=== PATIENT | female | born 1970 | race Caucasian/White ===

== ENCOUNTER 2017-03-07 15:27 | Outpatient (CLI) | payer BC ==
--- NOTE | 2017-03-09 09:37 | Mammography Report ---
DIGITAL BILATERAL SCREENING MAMMOGRAM: 03/07/2017 CLINICAL HISTORY: A 47-year-old female in for routine screening mammogram. The patient has no family history of breast cancer. She has had no prior breast surgeries. COMPARISON: 11/30/2008, 07/15/2010, 12/31/2012, 02/04/2014, . TECHNIQUE: Craniocaudad and oblique lateral views of each breast were obtained with Hologic full fiel d digital mammography. Axillary exaggerated craniocaudad views of both breasts were obtained. FINDINGS: Heterogeneously dense breasts are noted bilaterally. No significant clusters of calcificat ion are seen. No significant masses are noted. No change is detected. IMPRESSION: THE BREASTS APPEAR RADIOGRAPHICALLY BENIGN. BIRADS CATEGORY 1-NEGATIVE. RECOMMENDATION: ANNUAL BILATERAL SCREENING MAMMOGRAPHY. STANDARD QUALIFYING STATEMENTS 1. This examination was reviewed with the aid of Computer-Aided Detection (CAD). 2. A negative or benign imaging report should not delay biopsy if clinically suspicious findings are present. Consider surgical consultation if warranted. More than 5% of cancers are not identified by i maging. 3. Dense breasts may obscure an underlying neoplasm. JOB #: [id number] EXT JOB #:[id number]
== END 2017-03-07 15:28 | disposition home or self-care (01) ==
LOC: DI.N 15:27
PROVIDERS: ATTEND Family Medicine
DX: Z12.31 Encounter for screening mammogram for malignant neoplasm of breast (principal)
CPT/HCPCS: 77067

== ENCOUNTER 2019-07-11 08:17 | Outpatient (CLI) | payer OTHER ==
--- NOTE | 2019-07-11 12:53 | Mammography Report ---
Reason: SCREENING MAMMO Procedure Date: 07/11/2019 Accession Number: [id number] / [id number] Procedure: PEDRO - Screening Mammo w/Shawn CPT Code: FULL RESULT: EXAM: Screening Mammo w/Shawn DATE: 07/11/2019 8:56 AM CLINICAL HISTORY: Routine screening TECHNIQUE: (B) - Bilateral CC and MLO views were obtained. COMPARISON: 03/07/2017, 07/21/2015, 02/04/2014, 12/31/2012, 07/15/2010 PARENCHYMAL PATTERN: (D) - The breasts demonstrate heterogeneously dense fibroglandular parenchyma bilaterally. FINDINGS: No significant interval change. There are no suspicious masses, calcifications, or areas of distortion. IMPRESSION: Negative examination. BI-RADS category 1. RECOMMENDATION: (ANNUAL) - Recommend routine annual screening mammography. BI-RADS CATEGORY: (1) - Negative. STANDARD QUALIFYING STATEMENTS: 1. This examination was not reviewed with the aid of Computer-Aided Detection (CAD). 2. A negative or benign imaging report should not preclude biopsy if clinically suspicious findings are present. 3. Dense breasts may obscure an underlying neoplasm. 4. This examination was reviewed with the aid of 3D breast imaging (tomosynthesis).
== END 2019-07-11 08:18 | disposition home or self-care (01) ==
LOC: DI 08:17
DX: Z12.31 Encounter for screening mammogram for malignant neoplasm of breast (principal)
CPT/HCPCS: 77063; 77067

== ENCOUNTER 2020-09-14 07:24 | Outpatient (CLI) | payer MEDICAID ==
[2020-09-14 12:16] LABS: BASOPHILS # (AUTO) 0.1 10^3/uL (0.0-0.1); BASOPHILS % (AUTO) 0.7 %; EOSINOPHILS # (AUTO) 0.1 10^3/uL (0.0-0.7); EOSINOPHILS % (AUTO) 1.8 %; HCT - HEMATOCRIT 38.1 % (37.0-47.0); HGB - HEMOGLOBIN 12.5 g/dL (12.0-16.0); LYMPHOCYTES # (AUTO) 2.1 10^3/uL (1.5-3.5); LYMPHOCYTES % (AUTO) 28.7 %; MEAN CORPUSCULAR HGB CONC 32.8 g/dL (32.0-36.0); MEAN CORPUSCULAR VOLUME 91.6 fL (81.0-99.0); MEAN PLATELET VOLUME 10.7 fL (7.9-10.8); MONOCYTES # (AUTO) 0.8 10^3/uL (0.0-1.0); MONOCYTES % (AUTO) 10.4 %; NEUTROPHILS # (AUTO) 4.3 10^3/uL (1.5-6.6); NEUTROPHILS % (AUTO) 57.9 %; PLT - PLATELET COUNT 329 10^3/uL (130-450); RED BLOOD COUNT 4.16 10^6/uL (4.20-5.40); RED CELL DISTRIBUTION WIDTH 13.5 % (12.0-15.0); WHITE BLOOD COUNT 7.4 x10^3/uL (4.8-10.8)
[2020-09-14 14:20] LABS: ALBUMIN 3.9 g/dL (3.2-5.5); ALBUMIN/GLOBULIN RATIO 1.2 (1.0-2.2); ALKALINE PHOSPHATASE 78 IU/L (42-121); ALT ALANINE AMINOTRANSFERASE 20 IU/L (10-60); AST ASPARTATE AMINOTRANSFERASE 21 IU/L (10-42); BILIRUBIN,TOTAL 0.6 mg/dL (0.2-1.0); BUN - BLOOD UREA NITROGEN 19 mg/dL (6-20); CARBON DIOXIDE - CO2 24 mmol/L (21-32); CHLORIDE 103 mmol/L (101-111); CHOL/HDL RATIO 3.7 (<4.4); CHOLESTEROL 257 mg/dL; CREATININE 0.7 mg/dL (0.4-1.0); GFR - MDRD 88 (>89); GLUCOSE 96 mg/dL (70-100); HDL CHOLESTEROL 70 mg/dL; LDL CHOLESTEROL,CALCULATED 162 mg/dL; LDL/HDL RATIO 2.3 (<4.4); POTASSIUM 4.1 mmol/L (3.5-5.0); SODIUM 136 mmol/L (135-145); TOTAL PROTEIN 7.2 g/dL (6.7-8.2); TRIGLYCERIDES 124 mg/dL; VLDL CHOLESTEROL 25 mg/dL
[2020-09-14 14:28] LABS: THYROID STIMULATING HORMONE 1.99 uIU/mL (0.34-5.60)
== END 2020-09-14 23:59 | disposition home or self-care (01) ==
LOC: LAB.WCP 07:24
PROVIDERS: ATTEND Physician Assistant Medical
DX: Z00.00 Encounter for general adult medical examination without abnormal findings (principal)
CPT/HCPCS: 36415; 80050; 80061; 83721

== ENCOUNTER 2020-12-07 08:00 | Outpatient (CLI) | payer MEDICAID ==
[2020-12-07 12:18] LABS: CHOL/HDL RATIO 3.1 (<4.4); CHOLESTEROL 197 mg/dL; HDL CHOLESTEROL 64 mg/dL; LDL CHOLESTEROL,CALCULATED 110 mg/dL; LDL/HDL RATIO 1.7 (<4.4); TRIGLYCERIDES 117 mg/dL; VLDL CHOLESTEROL 23 mg/dL
== END 2020-12-07 23:59 | disposition home or self-care (01) ==
LOC: LAB.WCP 08:00
PROVIDERS: ATTEND Physician Assistant Medical
DX: E78.5 Hyperlipidemia, unspecified (principal)
CPT/HCPCS: 36415; 80061; 83721

== ENCOUNTER 2021-03-07 13:54 | Outpatient (CLI) | payer BC, MEDICAID ==
[2021-03-07 17:51] LABS: BASOPHILS % (AUTO) 0.3 %; EOSINOPHILS % (AUTO) 0.1 %; HCT - HEMATOCRIT 37.1 % (37.0-47.0); HGB - HEMOGLOBIN 12.2 g/dL (12.0-16.0); LYMPHOCYTES % (AUTO) 8.7 %; MEAN CORPUSCULAR HEMOGLOBIN 30.3 pg (27.0-31.0); MEAN CORPUSCULAR HGB CONC 32.9 g/dL (32.0-36.0); MEAN CORPUSCULAR VOLUME 92.1 fL (81.0-99.0); MEAN PLATELET VOLUME 10.7 fL (7.9-10.8); MONOCYTES # (AUTO) 1.2 10^3/uL (0.0-1.0); MONOCYTES % (AUTO) 11.1 %; NEUTROPHILS # (AUTO) 8.7 10^3/uL (1.5-6.6); NEUTROPHILS % (AUTO) 79.3 %; PLT - PLATELET COUNT 265 10^3/uL (130-450); RED BLOOD COUNT 4.03 10^6/uL (4.20-5.40); RED CELL DISTRIBUTION WIDTH 13.2 % (12.0-15.0); WHITE BLOOD COUNT 10.9 x10^3/uL (4.8-10.8)
[2021-03-07 18:17] LABS: ALBUMIN 3.7 g/dL (3.2-5.5); ALBUMIN/GLOBULIN RATIO 1.1 (1.0-2.2); BILIRUBIN,TOTAL 0.8 mg/dL (0.2-1.0); CALCIUM 8.6 mg/dL (8.5-10.3); CREATININE 0.8 mg/dL (0.4-1.0); POTASSIUM 3.8 mmol/L (3.5-5.0)
[2021-03-07 18:32] LABS: THYROID STIMULATING HORMONE 0.61 uIU/mL (0.34-5.60)
== END 2021-03-07 23:59 | disposition home or self-care (01) ==
LOC: LAB.N 13:54
PROVIDERS: ATTEND Family Medicine
DX: R50.9 Fever, unspecified (principal)
CPT/HCPCS: 36415; 80050

== ENCOUNTER 2021-03-07 14:42 | Emergency (ER) | payer BC, MEDICAID ==
[2021-03-07 15:56] LABS: BILIRUBIN,URINE NEGATIVE (NEGATIVE); GLUCOSE, URINE (UA) NEGATIVE (NEGATIVE); KETONES,URINE (UA) 15 mg/dL (NEGATIVE); LEUKOCYTE ESTERASE, URINE NEGATIVE (NEGATIVE); NITRITE,URINE NEGATIVE (NEGATIVE); OCCULT BLOOD,URINE TRACE-INTA (NEGATIVE); PH,URINE 7.5 PH (5.0-7.5); PROTEIN,URINE 30 mg/dL (NEGATIVE); UROBILINOGEN,URINE 0.2 (NORMAL) E.U./dL (NORMAL)
[2021-03-07 16:00] LABS: CLARITY,URINE HAZY (CLEAR)
[2021-03-07 16:04] LABS: AMORPHOUS SEDIMENT,UR Rare /LPF; BACTERIA,URINE Many /HPF (None Seen); SQUAMOUS EPITHELIAL CELL,UR MANY Squamous (<= Few); WBC,URINE 0-3 /HPF (0-5)
--- NOTE | 2021-03-07 16:22 | ED Physician Documentation ---
History of Present Illness - Stated complaint Stated Complaint: FEVER - Chief complaint Chief Complaint: Fever - History obtained from History obtained from: Patient - History of Present Illness Timing: Today Pain level max: 0 Pain level now: 0 - Additonal information Additional information: Patient is a 51-year-old female with fevers for the past 2 days. Denies any other symptoms. She was seen at the walk-in clinic today and had a fever of 104. She was given Tylenol and the fever broke. She states she feels better now. Has had her Covid vaccination. No cough. No congestion. No abdominal pain. No back pain. No urinary symptoms. No nausea or vomiting. No diarrhea. Has not been around anyone that she knows of that is ill. Patient states that she had blood work earlier today. No recent travel. Review of Systems Ten Systems: 10 systems reviewed and negative Constitutional: reports: Fever, Chills Eyes: denies: Decreased vision Ears: denies: Ear pain Nose: denies: Rhinorrhea / runny nose, Congestion Throat: denies: Sore throat Cardiac: denies: Chest pain / pressure Respiratory: denies: Dyspnea, Cough, Wheezing GI: denies: Abdominal Pain, Nausea, Vomiting, Diarrhea : denies: Dysuria, Frequency, Hesitancy, Now EGA Skin: denies: Rash Musculoskeletal: denies: Neck pain, Back pain Neurologic: denies: Headache PD PAST MEDICAL HISTORY - Past Medical History Past Medical History: Yes Cardiovascular: None Respiratory: None Neuro: None, Headaches Endocrine/Autoimmune: None GI: None 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: 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, Other : None, Other HEENT: None Psych: None, Depression Musculoskeletal: None Derm: None - Past Surgical History Past Surgical History: No General: 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: 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, Tubal ligation - Present Medications Home Medications: Ambulatory Orders Medication Instructions Recorded Confirmed Sertraline HCl [Zoloft] 150 mg PO DAILY 07/18/20 07/18/20 Amox/Clav 875/125 [Augmentin] 1 each PO Q12H #7 tablet 07/21/20 - Allergies Allergies/Adverse Reactions: Allergies Allergy/AdvReac Type Severity Reaction Status Date / Time No Known Drug Allergies Allergy Verified 07/18/20 08:20 - Social History Does the pt smoke?: No Smoking Status: Never smoker Does the pt drink ETOH?: No Does the pt have substance abuse?: No - Immunizations Immunizations are current?: Yes PD ED PE NORMAL - Vitals Vital signs reviewed: Yes - General General: Alert and oriented X 3, No acute distress, Well developed/nourished - HEENT HEENT: PERRL, Ears normal, Moist mucous membranes, Other (Mild posterior oropharyngeal erythema without tonsillar exudates.) - Neck Neck: Supple, no meningeal sign - Cardiac Cardiac: RRR, Strong equal pulses - Respiratory Respiratory: No respiratory distress, Clear bilaterally - Abdomen Abdomen: Soft, Non tender, Non distended - Back Back: No CVA TTP, No spinal TTP - Derm Derm: Warm and dry, No rash - Extremities Extremities: No edema, No calf tenderness / cord - Neuro Neuro: Alert and oriented X 3 - Psych Psych: Normal mood, Normal affect Results - Vitals Vitals: Vital Signs - 24 hr 03/07/21 03/07/21 14:48 17:03 Temperature 37.5 C 36.8 C Heart Rate 102 H 86 Respiratory 16 20 Rate Blood Pressure 92/64 92/56 L O2 Saturation 96 98 Oxygen O2 Source Room air - Labs Labs: Laboratory Tests 03/07/21 03/07/21 15:48 15:48 Urine Color YELLOW Urine Clarity HAZY Urine pH 7.5 Ur Specific [place] 1.020 Urine Protein 30 H Urine Glucose (UA) NEGATIVE Urine Ketones 15 H Urine Occult Blood TRACE-INTA Urine Nitrite NEGATIVE Urine Bilirubin NEGATIVE Urine Urobilinogen 0.2 (NORMAL) Ur Leukocyte Esterase NEGATIVE Urine RBC 6-10 H Urine WBC 0-3 Ur Squamous Epith Cells MANY Squamous H Amorphous Sediment Rare Urine Bacteria Many H Ur Microscopic Review INDICATED Urine Culture Comments NOT INDICATED Nasal Adenovirus (PCR) NOT DETECTED Nasal B. parapertussis DNA (PCR) NOT DETECTED Nasal Coronavir 229E PCR NOT DETECTED Nasal Coronavir HKU1 PCR NOT DETECTED Nasal Coronavir NL63 PCR NOT DETECTED Nasal Coronavir OC43 PCR NOT DETECTED Nasal Enterovir/Rhinovir PCR NOT DETECTED Nasal Influenza B PCR NOT DETECTED Nasal Influenza A PCR NOT DETECTED Nasal Parainfluen 1 PCR NOT DETECTED Nasal Parainfluen 2 PCR NOT DETECTED Nasal Parainfluen 3 PCR NOT DETECTED Nasal Parainfluen 4 PCR NOT DETECTED Nasal RSV (PCR) NOT DETECTED Nasal B.pertussis DNA PCR NOT DETECTED Nasal C.pneumoniae (PCR) NOT DETECTED Sachin Human Metapneumo PCR NOT DETECTED Nasal M.pneumoniae (PCR) NOT DETECTED Nasal SARS-CoV-2 (PCR) NOT DETECTED PD MEDICAL DECISION MAKING - ED course Complexity details: reviewed results, re-evaluated patient, considered differential, d/w patient ED course: Patient with fever of unclear etiology. No fever here. Tolerating p.o. without difficulty. Abdomen is soft, nontender nondistended. No CVA tenderness. She had blood work done at the walk-in clinic today, this is not yet available. She will follow up with her doctor for this. Urinalysis does not appear infected. Respiratory PCR panel is negative. Lungs are clear to auscultation bilaterally. Likely viral syndrome, we will have her follow-up with her doctor for further care. If the fevers persist for longer than 5 days, will consider further work-up and blood cultures. Patient counseled regarding signs and symptoms for which I believe and urgent re-evaluation would be necessary. Tiff ent with good understanding of and agreement to plan and is comfortable going home at this time This document was made in part using voice recognition software. While efforts are made to proofread this document, sound alike and grammatical errors may occur. Departure - Departure Disposition: 01 Home, Self Care Clinical Impression: Fever Qualifiers: Fever type: unspecified Qualified Code(s): R50.9 - Fever, unspecified Condition: Good Instructions: ED Fever Unconf Cause Follow-Up: Preethi Bentley PA-C [Primary Care Provider] - Within 1 week Comments: Follow-up with your doctor for further care. Return if you worsen. The cause of your symptoms is unclear today. Your respiratory PCR is negative. Your urinalysis does not appear infected. Continue Motrin and Tylenol for fever. The results of your blood work from the walk-in clinic are not available yet today. Follow-up with your doctor for these results Discharge Date/Time: 03/07/21 17:06
[2021-03-07 16:54] LABS: B. PARAPERTUSSIS- RESP PCR PAN NOT DETECTED; B. PERTUSSIS- RESP PCR PANEL NOT DETECTED; C. PNEUMONIAE- RESP PCR PANEL NOT DETECTED; CORONAVIRUS 229E-RESP PCR NOT DETECTED; CORONAVIRUS HKU1-RESP PCR NOT DETECTED; CORONAVIRUS NL63-RESP PCR NOT DETECTED; CORONAVIRUS OC43-RESP PCR NOT DETECTED; HUMAN METAPNEUMOVIRUS NOT DETECTED; INFLUENZA A- RESP PCR PANEL NOT DETECTED; INFLUENZA B - RESP PCR PANEL NOT DETECTED; M. PNEUMONIAE- RESP PCR PANEL NOT DETECTED; PARAINFLUENZA VIRUS 1 NOT DETECTED; PARAINFLUENZA VIRUS 2 NOT DETECTED; PARAINFLUENZA VIRUS 3 NOT DETECTED; PARAINFLUENZA VIRUS 4 NOT DETECTED; RHINOVIRUS/ENTEROVIRUS NOT DETECTED; RSV- RESP PCR PANEL NOT DETECTED; SARS-CoV-2 -RESP PCR PANEL NOT DETECTED
[2021-03-07 17:04] VITALS: BP 92/56
== END 2021-03-07 17:06 | disposition home or self-care (01) ==
LOC: ED 14:42
DX: R50.9 Fever, unspecified (principal); Z20.822 Contact with and (suspected) exposure to COVID-19
CPT/HCPCS: 0202U; 36415; 80050; 81001; 99281; 99283; 81003; 87086

== ENCOUNTER 2021-03-09 07:13 | Inpatient (IN) | payer BC ==
[2021-03-09 08:36] LABS: BASOPHILS % (AUTO) 0.3 %; EOSINOPHILS % (AUTO) 0.2 %; HGB - HEMOGLOBIN 12.7 g/dL (12.0-16.0); LYMPHOCYTES # (AUTO) 0.6 10^3/uL (1.5-3.5); LYMPHOCYTES % (AUTO) 4.7 %; MEAN CORPUSCULAR HGB CONC 34.3 g/dL (32.0-36.0); MEAN CORPUSCULAR VOLUME 90.2 fL (81.0-99.0); MEAN PLATELET VOLUME 10.4 fL (7.9-10.8); MONOCYTES % (AUTO) 8.5 %; NEUTROPHILS # (AUTO) 10.3 10^3/uL (1.5-6.6); NEUTROPHILS % (AUTO) 85.8 %; PLT - PLATELET COUNT 269 10^3/uL (130-450); RED CELL DISTRIBUTION WIDTH 13.3 % (12.0-15.0)
[2021-03-09] MEDS ORDERED: ACETAMINOPHEN 325 MG TABLET PO STA (08:41)
[2021-03-09] MEDS ORDERED: SODIUM CHLORIDE 0.9% 1,000 ML IV STA ×2 (08:41→10:09)
[2021-03-09] MEDS ORDERED: IBUPROFEN 600 MG TABLET PO STA (08:42)
[2021-03-09 08:51] LABS: ALBUMIN 3.2 g/dL (3.2-5.5); ALBUMIN/GLOBULIN RATIO 0.8 (1.0-2.2); BILIRUBIN,TOTAL 0.6 mg/dL (0.2-1.0); CALCIUM 8.7 mg/dL (8.5-10.3); CREATININE 0.9 mg/dL (0.4-1.0); POTASSIUM 3.9 mmol/L (3.5-5.0); TOTAL PROTEIN 7.2 g/dL (6.7-8.2)
--- NOTE | 2021-03-09 08:59 | ED Physician Documentation ---
History of Present Illness - Stated complaint Stated Complaint: CHILLS/FEVER - Chief complaint Chief Complaint: Fever - History obtained from History obtained from: Patient - Additonal information Additional information: Patient comes emergency department chief complaint of fever for 5 days. She states she really has not had any other symptoms except just feeling fatigued. She states that she was finally seen 3 days after the fever started and was worked up in the urgent care clinic with labs. Patient states that her fever initially was around 101, but was as high as 104 on the day she was evaluated. Patient was sent home, but reviewed her labs at home and was concerned because she saw "a lot of abnormalities". She states she googled some of the results and was concerned that something more serious may be wrong. The patient has continued to have fevers. She will occasionally take an antipyretic, but states that 6 hours later, her fever is back. Her watch has been alarming that her heart rate is up and that is concerned her as well. Patient denies any nausea vomiting. No back pain or dysuria. No cough or shortness of breath. No sick contacts. No other complaints at this time. Patient does have anxiety and states she thinks her elevated respiratory rate is from anxiety and not taking her Zoloft. Review of Systems Ten Systems: 10 systems reviewed and negative Constitutional: reports: Fever, Chills, Fatigue Eyes: reports: Reviewed and negative Ears: reports: Reviewed and negative Nose: reports: Reviewed and negative Throat: reports: Reviewed and negative Cardiac: reports: Reviewed and negative Respiratory: reports: Reviewed and negative GI: reports: Reviewed and negative : reports: Reviewed and negative Skin: reports: Reviewed and negative Musculoskeletal: reports: Reviewed and negative Neurologic: reports: Reviewed and negative Psychiatric: reports: Anxiety Endocrine: reports: Reviewed and negative Immunocompromised: reports: Reviewed and negative PD PAST MEDICAL HISTORY - Past Medical History Past Medical History: Yes Cardiovascular: High cholesterol Respiratory: None Neuro: Headaches Endocrine/Autoimmune: None GI: None 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, Other : None HEENT: None Psych: Depression, Anxiety Musculoskeletal: None Derm: None - Past Surgical History Past Surgical History: No General: Appendectomy, 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 NEEDLE: section, Tubal ligation - Present Medications Home Medications: Ambulatory Orders Medication Instructions Recorded Confirmed Sertraline HCl [Zoloft] 150 mg PO DAILY 07/18/20 03/09/21 - Allergies Allergies/Adverse Reactions: Allergies Allergy/AdvReac Type Severity Reaction Status Date / Time amoxicillin AdvReac Intermediate Nausea Verified 03/09/21 11:34 clavulanic acid AdvReac Hallucinati Verified 03/09/21 20:17 [From Augmentin] ons - Social History Does the pt smoke?: No Smoking Status: Never smoker Does the pt drink ETOH?: Yes ETOH Use: Wine Does the pt have substance abuse?: No - Immunizations Immunizations are current?: Yes PD ED PE NORMAL - Vitals Vital signs reviewed: Yes - General General: Alert and oriented X 3, Well developed/nourished, Other (Patient appears mildly anxious otherwise No distress.) - HEENT HEENT: Atraumatic, PERRL, EOMI, Moist mucous membranes - Neck Neck: Supple, no meningeal sign - Cardiac Cardiac: RRR, No murmur - Respiratory Respiratory: No respiratory distress, Clear bilaterally, Other (Patient is somewhat tachypneic but appears more anxious than anything.) - Abdomen Abdomen: Soft, Non tender, Non distended - Back Back: No CVA TTP - Derm Derm: Normal color, Warm and dry, No rash - Extremities Extremities: No deformity, No edema, No calf tenderness / cord - Neuro Neuro: Alert and oriented X 3, community health coordinator 2-12 intact, No motor deficit, No sensory deficit, Normal speech - Psych Psych: Normal mood, Normal affect Results - Vitals Vitals: Vital Signs - 24 hr 03/09/21 03/09/21 03/09/21 07:20 09:22 09:29 Temperature 102.9 C H 37.9 C Heart Rate 117 H 110 H 109 H Respiratory 22 28 H 31 H Rate Blood Pressure 104/61 116/49 L 116/49 L O2 Saturation 98 100 100 03/09/21 10:35 Temperature 37.3 C Heart Rate 100 Respiratory 32 H Rate Blood Pressure 106/64 O2 Saturation 98 Oxygen O2 Source Room air - Labs Labs: Laboratory Tests 03/09/21 03/09/21 03/09/21 08:20 08:20 08:20 WBC 12.0 H RBC 4.10 L Hgb 12.7 Hct 37.0 MCV 90.2 MCH 31.0 MCHC 34.3 RDW 13.3 Plt Count 269 MPV 10.4 Neut # (Auto) 10.3 H Lymph # (Auto) 0.6 L Rich # (Auto) 1.0 Eos # (Auto) 0.0 Baso # (Auto) 0.0 Absolute Nucleated RBC 0.00 Nucleated RBC % 0.0 Sodium 133 L Potassium 3.9 Chloride 101 Carbon Dioxide 23 Anion Gap 9.0 BUN 10 Creatinine 0.9 Estimated GFR (MDRD) 65 L Glucose 143 H Lactic Acid 3.0 H* Calcium 8.7 Total Bilirubin 0.6 AST 100 H ALT 111 H Alkaline Phosphatase 218 H Total Protein 7.2 Albumin 3.2 Globulin 4.0 Albumin/Globulin Ratio 0.8 L Urine Color Urine Clarity Urine pH Ur Specific [place] Urine Protein Urine Glucose (UA) Urine Ketones Urine Occult Blood Urine Nitrite Urine Bilirubin Urine Urobilinogen Ur Leukocyte Esterase Urine RBC Urine WBC Ur Squamous Epith Cells Urine Bacteria Urine Culture Comments Nasal Adenovirus (PCR) Nasal B. parapertussis DNA (PCR) Nasal Coronavir 229E PCR Nasal Coronavir HKU1 PCR Nasal Coronavir NL63 PCR Nasal Coronavir OC43 PCR Nasal Enterovir/Rhinovir PCR Nasal Influenza B PCR Nasal Influenza A PCR Nasal Parainfluen 1 PCR Nasal Parainfluen 2 PCR Nasal Parainfluen 3 PCR Nasal Parainfluen 4 PCR Nasal RSV (PCR) Nasal B.pertussis DNA PCR Nasal C.pneumoniae (PCR) Sachin Human Metapneumo PCR Nasal M.pneumoniae (PCR) Nasal SARS-CoV-2 (PCR) 03/09/21 03/09/21 08:48 09:25 WBC RBC Hgb Hct MCV MCH MCHC RDW Plt Count MPV Neut # (Auto) Lymph # (Auto) Rich # (Auto) Eos # (Auto) Baso # (Auto) Absolute Nucleated RBC Nucleated RBC % Sodium Potassium Chloride Carbon Dioxide Anion Gap BUN Creatinine Estimated GFR (MDRD) Glucose Lactic Acid Calcium Total Bilirubin AST ALT Alkaline Phosphatase Total Protein Albumin Globulin Albumin/Globulin Ratio Urine Color DARK YELLOW Urine Clarity SL. CLOUDY Urine pH 7.5 Ur Specific [place] 1.020 Urine Protein 100 H Urine Glucose (UA) NEGATIVE Urine Ketones TRACE Urine Occult Blood LARGE H Urine Nitrite NEGATIVE Urine Bilirubin NEGATIVE Urine Urobilinogen 0.2 (NORMAL) Ur Leukocyte Esterase NEGATIVE Urine RBC > Urine WBC 0-3 Ur Squamous Epith Cells MOD Squamous H Urine Bacteria Rare Urine Culture Comments NOT INDICATED Nasal Adenovirus (PCR) NOT DETECTED Nasal B. parapertussis DNA (PCR) NOT DETECTED Nasal Coronavir 229E PCR NOT DETECTED Nasal Coronavir HKU1 PCR NOT DETECTED Nasal Coronavir NL63 PCR NOT DETECTED Nasal Coronavir OC43 PCR NOT DETECTED Nasal Enterovir/Rhinovir PCR NOT DETECTED Nasal Influenza B PCR NOT DETECTED Nasal Influenza A PCR NOT DETECTED Nasal Parainfluen 1 PCR NOT DETECTED Nasal Parainfluen 2 PCR NOT DETECTED Nasal Parainfluen 3 PCR NOT DETECTED Nasal Parainfluen 4 PCR NOT DETECTED Nasal RSV (PCR) NOT DETECTED Nasal B.pertussis DNA PCR NOT DETECTED Nasal C.pneumoniae (PCR) NOT DETECTED Sachin Human Metapneumo PCR NOT DETECTED Nasal M.pneumoniae (PCR) NOT DETECTED Nasal SARS-CoV-2 (PCR) NOT DETECTED - Rads (name of study) CXR Radiology: Final report received, EMP read indepedently, See rad report (RLL infiltrate) PD MEDICAL DECISION MAKING - ED course Complexity details: reviewed old records, reviewed results, re-evaluated patient , considered differential, d/w patient ED course: The patient was worked up with labs, chest x-ray, and urinalysis. She was given IV fluids, Tylenol, and ibuprofen, with marked improvement in her symptoms, as well as her heart rate, which was normal on re-evaluation. UA was negative. Labs showed mild LFT elevations and leukocytosis, prompting US of gall bladder. This showed a stone, but no inflammation or CBD enlargement. CXR showed a RLL infiltrate. Respiratory PCR negative. Lactate level elevated at 3.0. Pt was given a total of 3 L of NS in the ED. She was also treated with IV Rocephin and Zithromax. I discussed the case with Dr. Burks, the on-call hospitalist, and he agreed to admit the pt for sepsis and pneumonia. Departure - Departure Disposition: 66 [facility] DC/Xfer Clinical Impression: Pneumonia Qualifiers: Pneumonia type: due to unspecified organism Laterality: right Lung location: lower lobe of lung Qualified Code(s): J18.9 - Pneumonia, unspecified organism Sepsis Qualifiers: Sepsis type: sepsis due to unspecified organism Sepsis acute organ dysfunction status: without acute organ dysfunction Qualified Code(s): A41.9 - Sepsis, unspecified organism Condition: Serious Discharge Date/Time: 03/09/21 12:27
--- NOTE | 2021-03-09 09:18 | XRAY Report ---
PROCEDURE: Chest 1 View X-Ray INDICATIONS: fever TECHNIQUE: One view of the chest was acquired. COMPARISON: CT abdomen/pelvis 07/18/2020 but no recent plain films. FINDINGS: Surgical changes and devices: None. Lungs and pleura: No pleural effusions or pneumothorax. Lungs are clear on the left but shows moder ate to dense pneumonia at the right lower lung.. Mediastinum: Mediastinal contours appear normal. Heart size is normal. Bones and chest wall: No suspicious bony lesions. Overlying soft tissues appear unremarkable. IMPRESSION: Moderate to dense pneumonia right lower lung. No effusion seen. Clear left lung. Reviewed by: Navjot Holt MD on 03/09/2021 9:17 AM PDT Approved by: Navjot Holt MD on 03/09/2021 9:17 AM PDT Station ID: [id number]
[2021-03-09 09:37] LABS: BILIRUBIN,URINE NEGATIVE (NEGATIVE); GLUCOSE, URINE (UA) NEGATIVE (NEGATIVE); KETONES,URINE (UA) TRACE mg/dL (NEGATIVE); LEUKOCYTE ESTERASE, URINE NEGATIVE (NEGATIVE); NITRITE,URINE NEGATIVE (NEGATIVE); OCCULT BLOOD,URINE LARGE (NEGATIVE); PH,URINE 7.5 PH (5.0-7.5); PROTEIN,URINE 100 mg/dL (NEGATIVE); UROBILINOGEN,URINE 0.2 (NORMAL) E.U./dL (NORMAL)
[2021-03-09 09:56] LABS: CLARITY,URINE SL. CLOUDY (CLEAR)
[2021-03-09 09:58] LABS: BACTERIA,URINE Rare /HPF (None Seen); SQUAMOUS EPITHELIAL CELL,UR MOD Squamous (<= Few); WBC,URINE 0-3 /HPF (0-5)
[2021-03-09 10:21] LABS: B. PARAPERTUSSIS- RESP PCR PAN NOT DETECTED; B. PERTUSSIS- RESP PCR PANEL NOT DETECTED; C. PNEUMONIAE- RESP PCR PANEL NOT DETECTED; CORONAVIRUS 229E-RESP PCR NOT DETECTED; CORONAVIRUS HKU1-RESP PCR NOT DETECTED; CORONAVIRUS NL63-RESP PCR NOT DETECTED; CORONAVIRUS OC43-RESP PCR NOT DETECTED; HUMAN METAPNEUMOVIRUS NOT DETECTED; INFLUENZA A- RESP PCR PANEL NOT DETECTED; INFLUENZA B - RESP PCR PANEL NOT DETECTED; M. PNEUMONIAE- RESP PCR PANEL NOT DETECTED; PARAINFLUENZA VIRUS 1 NOT DETECTED; PARAINFLUENZA VIRUS 2 NOT DETECTED; PARAINFLUENZA VIRUS 3 NOT DETECTED; PARAINFLUENZA VIRUS 4 NOT DETECTED; RHINOVIRUS/ENTEROVIRUS NOT DETECTED; RSV- RESP PCR PANEL NOT DETECTED; SARS-CoV-2 -RESP PCR PANEL NOT DETECTED
[2021-03-09] MEDS ORDERED: AZITHROMYCIN INJ 500 MG in SODIUM CHLORIDE 0.9% 250 ML IV STA (11:15)
[2021-03-09] MEDS ORDERED: cefTRIAXone 2 GM in SODIUM CHLORIDE 0.9% MINIBAG 100 ML IV STA (11:15)
--- NOTE | 2021-03-09 11:21 | Ultrasound Report ---
PROCEDURE: Abdomen Limited INDICATIONS: elev LFTs, fever TECHNIQUE: Real-time scanning was performed of the abdominal and retroperitoneal organs, with image documentatio n. COMPARISON: None. FINDINGS: Liver: Liver is mildly enlarged measuring 18.7 cm with appearance of steatosis. Gallbladder: Gallbladder demonstrates a prominent focus of increased echogenicity, measuring 1.5 cm. Wall thickness is within normal limits measuring 1.9 mm. Biliary ducts: Intrahepatic bile ducts are non-dilated. Extrahepatic bile duct caliber measures 3.2 mm. Normal is 6-7 mm or less in diameter, or 10 mm or less post-cholecystectomy. Pancreas: Visualized portions of the pancreas are sonographically normal. Kidneys: Kidneys are normal in size and echotexture. Right kidney measures 11.5 cm long. No hydron ephrosis or nephrolithiasis. No solid masses. IMPRESSION: Cholelithiasis without imaging evidence of cholecystitis. Hepatomegaly with steatosis. Reviewed by: Chanda Sandra MD on 03/09/2021 11:20 AM PDT Approved by: Chanda Sandra MD on 03/09/2021 11:20 AM PDT Station ID: [id number]
[2021-03-09] MEDS ORDERED: ZOLPIDEM 5 MG TABLET PO PRN (11:25)
[2021-03-09] MEDS ORDERED: ONDANSETRON ODT 4 MG TABLET TL PRN (11:25)
[2021-03-09] MEDS ORDERED: SODIUM CHLORIDE 0.9% 1,000 ML IV SCH (12:00)
--- NOTE | 2021-03-09 12:59 | PHARMACY PROGRESS NOTE ---
- Best Possible Medication History Admit Date and Time: 03/09/21 1125 Processed by: Nursing Medication History completed: Yes As the person ultimately responsible for medication therapy, providers are able to order a medication from an existing home medication list in [facility] via the "Reconcile Routine" prior to Confirmation of that medication by marketing support coordinator. Such practice is discouraged except when the physician, in their clinical judgment, deems that a medical need exists for a medication without regard to previous use.
[2021-03-09] MEDS: SODIUM CHLORIDE 0.9% 1,000 ML IV SCH ×2 (13:20→20:57)
[2021-03-09] MEDS ORDERED: SODIUM CHLORIDE 0.9% 1,000 ML IV ONE (13:48)
--- NOTE | 2021-03-09 13:56 | HISTORY & PHYSICAL EXAMINATION ---
Chief Complaint - Chief Complaint Chief Complaint: Fever History of Present Illness - Admitted From Admitted From:: ER - History Obtained From Records Reviewed: ER History obtained from: Patient, ED Physician Exam Limitations: None - History of Present Illness HPI Comment/Other: Patient is a 51-year-old relatively healthy female who presents emergency room after 5 days of of fever noticed at home initially. Patient states that on Sunday, 5 days ago, in the morning she started to feel chills and checked her temperature was found to be 100 F. This continued for several days. She went to see her PCP earlier this week and was found to be febrile at their office as well as tachycardic and was directed to come to the emergency room for further evaluation. At the time, she had no other significant symptoms of fever. Specifically she denied any cough, shortness of breath, abdominal pain, nausea vomiting, dysuria, rash, headache and denied recent exposure to COVID-19. She denied recent travel In the ER, lab work was not repeated because it had just been done in her doctor's office prior to being sent to the ER. Lab work was not available for review at the time of the ER visit because she was afebrile and had a relatively benign exam she was discharged home with further instructions to follow-up as needed. Patient states she logged into her patient portal and noticed abnormal labs, and also was continued to have fevers through today when she decided she needed to come to the emergency room for further evaluation. In the ER here, patient had mild hyponatremia of sodium 133, and elevated AST and ALT at 101 111 respectively. Her alk phos was also initially 151 on 03/07/2021, which increased to 218 today. Because of the mild elevation in LFTs, ER physician ordered an abdominal ultrasound which was relatively nonspecific. Also, her lactic acid level was 3.0 in the ER. Her initial vitals in the ER were remarkable for temperature 102.9 F, heart rate 117, and mildly soft blood pressure of 104/61. She was saturating well on room air. Chest x-ray was done which suggestive of right lower lobe pneumonia. She was given 2 L of IV fluids, and Rocephin as well as azithromycin and hospitalist admission was requested. History - Past Medical History Cardiovascular: reports: High cholesterol Respiratory: reports: None Neuro: reports: Headaches Endocrine/Autoimmune: reports: None GI: reports: None COUNTY SURVEYOR: reports: None, Other : reports: None HEENT: reports: None Psych: reports: Depression, Anxiety Musculoskeletal: reports: None Derm: reports: None MRSA Hx?: No - Past Surgical History General: reports: Appendectomy, Colonoscopy /COUNTY SURVEYOR: reports: section, Tubal ligation - Family & Social History Family History: Father: Diabetes, Type 2, Brother: Diabetes, Type 2 Family History Comment/Other: Mother had congestive heart failure. Living arrangement: At home Living Situation: With spouse/s.o. 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 She reports her job is currently very stressful and has been for the last few months.She states she does not sleep well. She has 3 children in total. - Substance History Use: Uses substance without health or social issues: NONE Abuse: Recurrent use of substance despite neg consequences: NONE Dependence: Experiences withdrawal or developed tolerances: NONE - POLST Patient has POLST: No POLST Status: CODE STATUS was discussed Meds/Allgy - Home Medications Home Medications: Ambulatory Orders Medication Instructions Recorded Confirmed Sertraline HCl [Zoloft] 150 mg PO DAILY 07/18/20 03/09/21 - Allergies Allergies/Adverse Reactions: Allergies Allergy/AdvReac Type Severity Reaction Status Date / Time amoxicillin AdvReac Intermediate Nausea Verified 03/09/21 11:34 Review of Systems - Constitutional Constitutional: reports: Fatigue, Fever, Chills, Malaise, Weakness, Poor appetite, Diaphoresis, Night sweats - Eyes Eyes: denies: Pain - Ears, Nose & Throat Ears, Nose & Throat: denies: Ear pain - Cardiovascular Cariovascular: reports: Irregular heart rate. denies: Palpitations, Chest pain - Respiratory Respiratory: denies: Cough, Sputum production, Wheezing, SOB at rest, SOB with exertion - Gastrointestinal Gastrointestinal: denies: Abdominal pain, Abdominal distention, Constipation, Diarrhea, Change in bowel habits, Rectal bleeding, Nausea, Vomiting - Genitourinary Genitourinary: denies: Dysuria, Frequency, Urgency, Hematuria, Incontinence, Flank pain - Musculoskeletal Musculoskeletal: denies: Muscle aches, Joint pain - Integumentary Integumentary: denies: Rash - Neurological Neurological: denies: Focal weakness, Headache - Hematologic/Lymphatic Hematologic/Lymphatic: denies: Lymphadenopathy, Recurrent infections Prior Level of Functionality: Fully ambulatory and independent and currently working as a [place] contractor.. Exam - Vital Signs Reviewed Vital Signs: Yes Vital Signs: Vital Signs x48h Temp Pulse Pulse Resp BP BP Pulse Ox 03/09/21 13:41 36.6 C 91 20 85/51 L 95 03/09/21 12:51 91/47 L 96 03/09/21 12:35 89/48 L 03/09/21 12:33 36.6 C 87 22 77/61 L 03/09/21 11:33 36.6 C 92 18 111/62 97 03/09/21 10:35 37.3 C 100 32 H 106/64 98 03/09/21 09:29 109 H 31 H 116/49 L 100 03/09/21 09:22 37.9 C 110 H 28 H 116/49 L 100 03/09/21 07:20 102.9 C H 117 H 22 104/61 98 - Physical Exam General Appearance: positive: No acute distress, Alert Eyes Bilateral: positive: Normal inspection, PERRL, EOMI ENT: positive: ENT inspection nml, Pharynx nml, No signs of dehydration Neck: positive: Nml inspection, Thyroid nml, No JVD, Trachea midline. negative: Thyromegaly, Lymphadenopathy (R), Lymphadenopathy (L), Stiff neck Respiratory: positive: No respiratory distress, Breath sounds nml Cardiovascular: positive: Regular rate & rhythm, No murmur, No gallop, Irregu larly irregular, Extrasystoles, Tachycardia Peripheral Pulses: positive: 2+ Abdomen: positive: Non-tender, No organomegaly, Nml bowel sounds, No distention Skin: positive: Color nml, No rash Extremities: positive: Non-tender, Full ROM, Nml appearance Neurologic/Psychiatric: positive: Oriented x3, CN's nml (2-12), Motor nml, Sensation nml Sepsis Event Note (H) - Evaluation Current Stage of Sepsis: Sepsis Possible source of Sepsis: positive: Pulmonary Confirmed Source and Organism (if known) of Sepsis: Source of sepsis thought to be right lower lobe pneumonia with organism unknown at this time. Sepsis Associated Organ Dysfunction: Hypotension - Sepsis Criteria Sepsis Criteria: Recorded Temperature greater than 38.3C or Less than 36C, Recorded Heart Rate greater than 90 bpm, WBC count greater than 12,000 or less than 4000, MAP less than 65 mmHg, Metabolic: lactate > 2 mmol/L Conclusion/Plan - Problem List (1) Sepsis Conclusion/Plan: Patient meets sepsis criteria with tachycardia, hypotension, lactic acidosis, and chest x-ray consistent with right lower lobe pneumonia. Patient hypotensive in the ER somewhat worsened on the floor despite 2 L of IV fluids with normal saline. Despite low blood pressure and lab findings patient is relatively asymptomatic with the exception of malaise. She denies any respiratory complaints. Saturating well on room air. We will treat empirically with azithromycin and Rocephin. Follow blood cultures. Of note COVID-19 is negative. She has had her vaccination. Last dose was more than 2 months ago. Qualifiers: Sepsis type: sepsis due to unspecified organism Sepsis acute organ dysfunction status: without acute organ dysfunction Qualified Code(s): A41.9 - Sepsis, unspecified organism (2) Pneumonia Conclusion/Plan: Somewhat incidental finding on chest x-ray given that she has had no respiratory symptoms. For now is the most likely source of sepsis and fever. Treat empirically with Rocephin and azithromycin. Follow-up blood cultures. Transition to oral antibiotics when clinically improved. Check Legionella in urine. Qualifiers: Pneumonia type: due to unspecified organism Laterality: right Lung location: lower lobe of lung Qualified Code(s): J18.9 - Pneumonia, unspecified organism (3) Elevated transaminase level Conclusion/Plan: Mildly elevated transaminases increased from 2 days prior. May be related to hypoperfusion in the setting of sepsis with hypotension. We will check hepatitis panel. Ultrasound is nondiagnostic and given her benign abdominal exam, less suspicious of hepatobiliary source. Especially given normal bilirubin level.but we will continue to follow. (4) Fever Conclusion/Plan: As above, source likely due to pneumonia. Follow blood cultures and management as above. Antipyretics as necessary. Qualifiers: Fever type: unspecified Qualified Code(s): R50.9 - Fever, unspecified (5) Hypotension Conclusion/Plan: Likely secondary to sepsis as above. Patient relatively asymptomatic. Given another 1 L bolus followed by NS at 125 mill per hour. Follow urine output. (6) Major depressive disorder Conclusion/Plan: Stable. Resume home Zoloft. - Lab Results Lab results reviewed: Yes Fish Bones: 03/09/21 08:20 03/09/21 08:20 - Diagnostic Imaging Results Diagnostic Imaging Results: positive: Final report reviewed - EKG Results EKG Interpreted Independently: Yes Core Measures - Anticipated LOS I expect patient to be DC'd or transferred within 96 hours.: Yes - DVT/VTE - Prophylaxis VTE/DVT Device ordered at admit?: Yes
[2021-03-09] MEDS ORDERED: DOBUTamine 500 MG/250 ML 500 MG/250 ML BAG IV SCH ×2 (16:00→17:10)
[2021-03-09] MEDS ORDERED: IOVERSOL 320 100 ML VIAL IVP ONE ×2 (18:05→20:11)
[2021-03-09] MEDS: ACETAMINOPHEN 325 MG TABLET PO PRN (19:05)
[2021-03-09] MEDS: SODIUM CHLORIDE FLUSH 0.9% 10 ML SYRINGE IVP PRN (19:30)
--- NOTE | 2021-03-09 19:31 | CT Report ---
PROCEDURE: ANGIO CHEST W/WO INDICATIONS: Fever, Tachycardia, elevated D-Dimer, r/o PE CONTRAST: IV CONTRAST: Optiray 320 ml: 80 PO CONTRAST: *NO PO CONTRAST TECHNIQUE: After the administration of intravenous contrast, 2 mm thick sections acquired from the pulmonary api jamil to the posterior costophrenic angles. 3-dimensional maximum intensity projection (MIP) coronal a nd sagittal reformats were then acquired through the thorax. For radiation dose reduction, the follow ing was used: automated exposure control, adjustment of mA and/or kV according to patient size. COMPARISON: CXR earlier today. FINDINGS: Image quality: Excellent. Pulmonary arteries: Pulmonary arteries are normal in size, and demonstrate no intraluminal filling d efects to suggest central pulmonary embolism. Lungs and pleura: Consolidative and patchy airspace opacity in the right lower lobe, moderate to franklin re. There is mild patchy opacity in the right middle lobe. Trace opacity in the left lower lobe. Ther e is a reticular thickening bilaterally. Trace right pleural effusion. No pneumothorax. Central and peripheral airways are patent. Mediastinum: Heart size is normal, without pericardial effusion. No mediastinal adenopathy apprecia elenita. Moderate prominent right hilar node is likely reactive. Thoracic aorta is normal in caliber and enhancement. Esophagus is normal in caliber, without hiatal hernia. Bones and chest wall: No suspicious bony lesions. Ribs and thoracic spine appear intact throughout. No axillary or supraclavicular adenopathy. The thyroid is normal in size and there are no incident al findings. Abdomen: Accessory right hepatic artery replaced off of the SMA. Visualized upper abdominal solid org ans appear normal in the early arterial phase of enhancement. IMPRESSION: 1. Moderate to severe right lower lobe pneumonia. 2. Trace right pleural effusion. 3. No pulmonary embolism. 4. Mildly prominent right hilar lymph node is likely reactive. Reviewed by: Mane De Oliveira MD on 03/09/2021 7:29 PM PDT Approved by: Mane De Oliveira MD on 03/09/2021 7:29 PM PDT Station ID: [id number]
[2021-03-09] MEDS: SODIUM CHLORIDE FLUSH 0.9% 10 ML SYRINGE IVP SCH (20:03)
[2021-03-09] MEDS: IBUPROFEN 400 MG TABLET PO PRN (20:57)
[2021-03-10] MEDS: SODIUM CHLORIDE FLUSH 0.9% 10 ML SYRINGE IVP SCH ×3 (00:05→16:57)
[2021-03-10] MEDS: IBUPROFEN 400 MG TABLET PO PRN ×2 (01:16→21:03)
[2021-03-10] MEDS: guaiFENesin 100 MG/5 ML UDC PO PRN ×2 (03:16→13:24)
[2021-03-10] MEDS: SODIUM CHLORIDE 0.9% 1,000 ML IV SCH ×3 (04:52→21:09)
[2021-03-10 05:35] LABS: HCT - HEMATOCRIT 33.3 % (37.0-47.0); HGB - HEMOGLOBIN 10.8 g/dL (12.0-16.0); MEAN CORPUSCULAR HEMOGLOBIN 30.3 pg (27.0-31.0); MEAN CORPUSCULAR HGB CONC 32.4 g/dL (32.0-36.0); MEAN CORPUSCULAR VOLUME 93.3 fL (81.0-99.0); MEAN PLATELET VOLUME 10.1 fL (7.9-10.8); RED BLOOD COUNT 3.57 10^6/uL (4.20-5.40)
[2021-03-10 06:04] LABS: ALBUMIN 2.7 g/dL (3.2-5.5); ALBUMIN/GLOBULIN RATIO 0.9 (1.0-2.2); BILIRUBIN,TOTAL 0.4 mg/dL (0.2-1.0); CALCIUM 7.3 mg/dL (8.5-10.3); CREATININE 0.7 mg/dL (0.4-1.0); CRP - C-REACTIVE PROTEIN 26.9 mg/dL (0-1.0); POTASSIUM 3.6 mmol/L (3.5-5.0); TOTAL PROTEIN 5.8 g/dL (6.7-8.2)
[2021-03-10] MEDS: ACETAMINOPHEN 325 MG TABLET PO PRN ×4 (06:13→23:51)
[2021-03-10] MEDS ORDERED: AZITHROMYCIN INJ 500 MG in SODIUM CHLORIDE 0.9% 250 ML IV SCH (09:00)
[2021-03-10] MEDS ORDERED: cefTRIAXone 2 GM in SODIUM CHLORIDE 0.9% MINIBAG 100 ML IV SCH (09:00)
--- NOTE | 2021-03-10 15:58 | PROVIDER PROGRESS NOTE ---
Subjective - Prog Note Date Prog Note Date: 03/10/21 Prog Note Time: 15:56 - Subjective Pt reports feeling: Worse (Patient feels "like crap", coughing, very fatigued, decreased appetite. Denies chest pain. No other new complaints.) Current Medications - Current Medications Current Medications: Current Medications Generic Name Dose Route Start Last Admin Trade Name Freq PRN Reason Stop Dose Admin Acetaminophen 650 mg 03/09/21 11:25 03/10/21 12:10 Acetaminophen 325 Mg Tablet PO 650 mg Q4HR PRN Administration FEVER > 100.5 F Guaifenesin 100 mg 03/10/21 00:20 03/10/21 13:24 Guaifenesin 100 Mg/5 Ml Udc PO 100 mg Q6HR PRN Administration Cough Azithromycin 500 mg/ Sodium 250 mls @ 250 mls/hr 03/10/21 09:00 03/10/21 09:40 Chloride IV 03/11/21 09:59 Infused DAILY OCTAVIO Infusion Ceftriaxone Sodium 2 gm/ 100 mls @ 200 mls/hr 03/10/21 09:00 03/10/21 10:30 Sodium Chloride IV Infused DAILY OCTAVIO Infusion Sodium Chloride 1,000 mls @ 125 mls/hr 03/09/21 12:58 03/10/21 15:00 Normal Saline 0.9% IV 125 mls/hr .Q8H OCTAVIO Infusion Dobutamine HCl/Dextrose 500 mg in 250 mls @ 5.239 mls/hr 03/09/21 17:10 03/09/21 19:30 Dobutamine IV Not Given .[id number] OCTAVIO Protocol 2.5 MCG/KG/MIN Ibuprofen 400 mg 03/09/21 11:25 03/10/21 01:16 Ibuprofen 400 Mg Tablet PO 400 mg Q4HR PRN Administration Pain 1 to 4 Sodium Chloride 10 ml 03/09/21 11:25 03/09/21 19:30 Sodium Chloride Flush 0.9% 10 Ml Syringe IVP 10 ml PRN PRN Administration NEEDED PER PROVIDER ORDERS Sodium Chloride 10 ml 03/09/21 17:00 03/10/21 08:46 Sodium Chloride Flush 0.9% 10 Ml Syringe IVP 10 ml 0100,0900,1700 OCTAVIO Administration Objective - Vital Signs/Intake & Output Vital Signs: Vital Signs x48h Temp Pulse Resp BP Pulse Ox 03/10/21 15:49 37.5 C 03/10/21 15:00 36.9 C 101 H 18 123/83 H 95 03/10/21 14:00 37.3 C 108 H 25 H 110/63 91 L 03/10/21 13:00 38.8 C H 115 H 27 H 109/62 90 L 03/10/21 12:00 37.9 C 105 H 20 138/66 H 94 03/10/21 11:00 36.9 C 101 H 25 H 122/92 H 97 03/10/21 09:00 102 H 28 H 106/65 92 03/10/21 08:00 36.6 C 95 26 H 113/73 95 Intake & Output: Intake & Output 03/07/21 03/08/21 03/09/21 03/10/21 23:59 23:59 23:59 23:59 Intake Total 5683.333 3462.666 Output Total 1200 450 Balance 4483.333 3012.666 - Lab Results Fish Bones: 03/10/21 05:20 03/10/21 05:20 Other Labs: Lab Results x24hrs 03/10/21 03/10/21 03/09/21 Range/Units 05:20 05:20 16:10 WBC 14.0 H (4.8-10.8) x10^3/uL RBC 3.57 L (4.20-5.40) 10^6/uL Hgb 10.8 L (12.0-16.0) g/dL Hct 33.3 L (37.0-47.0) % MCV 93.3 (81.0-99.0) fL MCH 30.3 (27.0-31.0) pg MCHC 32.4 (32.0-36.0) g/dL RDW 14.0 (12.0-15.0) % Plt Count 247 (130-450) 10^3/uL MPV 10.1 (7.9-10.8) fL D-Dimer (200.0-255.0) ng/mL Sodium 137 (135-145) mmol/L Potassium 3.6 (3.5-5.0) mmol/L Chloride 108 (101-111) mmol/L Carbon Dioxide 20 L (21-32) mmol/L Anion Gap 9.0 (6-13) BUN 9 (6-20) mg/dL Creatinine 0.7 (0.4-1.0) mg/dL Estimated GFR (MDRD) 88 L (>89) Glucose 111 H (70-100) mg/dL Calcium 7.3 L (8.5-10.3) mg/dL Total Bilirubin 0.4 (0.2-1.0) mg/dL AST 91 H (10-42) IU/L ALT 104 H (10-60) IU/L Alkaline Phosphatase 225 H (42-121) IU/L C-Reactive Protein 26.9 H (0-1.0) mg/dL Total Protein 5.8 L (6.7-8.2) g/dL Albumin 2.7 L (3.2-5.5) g/dL Globulin 3.1 (2.1-4.2) g/dL Albumin/Globulin Ratio 0.9 L (1.0-2.2) Nasal Screen MRSA (PCR) NEGATIVE (NEGATIVE) 03/09/21 Range/Units 15:52 WBC (4.8-10.8) x10^3/uL RBC (4.20-5.40) 10^6/uL Hgb (12.0-16.0) g/dL Hct (37.0-47.0) % MCV (81.0-99.0) fL MCH (27.0-31.0) pg MCHC (32.0-36.0) g/dL RDW (12.0-15.0) % Plt Count (130-450) 10^3/uL MPV (7.9-10.8) fL D-Dimer 382.7 H (200.0-255.0) ng/mL Sodium (135-145) mmol/L Potassium (3.5-5.0) mmol/L Chloride (101-111) mmol/L Carbon Dioxide (21-32) mmol/L Anion Gap (6-13) BUN (6-20) mg/dL Creatinine (0.4-1.0) mg/dL Estimated GFR (MDRD) (>89) Glucose (70-100) mg/dL Calcium (8.5-10.3) mg/dL Total Bilirubin (0.2-1.0) mg/dL AST (10-42) IU/L ALT (10-60) IU/L Alkaline Phosphatase (42-121) IU/L C-Reactive Protein (0-1.0) mg/dL Total Protein (6.7-8.2) g/dL Albumin (3.2-5.5) g/dL Globulin (2.1-4.2) g/dL Albumin/Globulin Ratio (1.0-2.2) Nasal Screen MRSA (PCR) (NEGATIVE) ABX Reporting Has patient been on IV antibiotics over the past 48 hours?: Yes Sepsis Event Note (H) - Evaluation Current Stage of Sepsis: Sepsis Possible source of Sepsis: positive: Pulmonary - Sepsis Criteria Sepsis Criteria: Recorded Temperature greater than 38.3C or Less than 36C, Recorded Heart Rate greater than 90 bpm, WBC count greater than 12,000 or less than 4000, MAP less than 65 mmHg, Metabolic: lactate > 2 mmol/L Assessment/Plan - Problem List (1) Sepsis Impression: Sepsis is resolved. Hypotension resolved without ever having to use the dobutamine for which she was transferred to the ICU. Has intermittent tachycardia, mostly with activity or with coughing spells, but generally speaking heart rate has been fairly benign. White count slightly increased from 12,000-14,000. CT angiogram done yesterday to rule out PE is negative for PE showing again the consolidation in the right lower lobe. Qualifiers: Sepsis type: sepsis due to unspecified organism Sepsis acute organ dy sfunction status: without acute organ dysfunction Qualified Code(s): A41.9 - Sepsis, unspecified organism (2) Pneumonia Impression: As above, sepsis component has resolved but continues to have hypoxia and subjective unwellness with fatigue and cough as relates to pneumonia. Continue empiric IV antibiotics pending blood cultures and clinical course. Up from 12,000-14,000, will recheck in the a.m. If labs improve and hypoxia improves consider transitioning to oral antibiotics. Qualifiers: Pneumonia type: due to unspecified organism Laterality: right Lung location: lower lobe of lung Qualified Code(s): J18.9 - Pneumonia, unspecified organism (4) Fever Qualifiers: Fever type: unspecified Qualified Code(s): R50.9 - Fever, unspecified (5) Hypotension Impression: Resolved (6) Major depressive disorder Impression: Stable, but admits to some anxiety today. Resume Zoloft
[2021-03-10] MEDS: BENZONATATE 100 MG CAPSULE PO PRN ×2 (16:56→21:03)
[2021-03-11] MEDS: SODIUM CHLORIDE FLUSH 0.9% 10 ML SYRINGE IVP SCH ×3 (02:38→17:04)
[2021-03-11] MEDS: IBUPROFEN 400 MG TABLET PO PRN ×2 (04:15→12:07)
[2021-03-11 04:58] LABS: HCT - HEMATOCRIT 32.2 % (37.0-47.0); HGB - HEMOGLOBIN 10.8 g/dL (12.0-16.0); MEAN CORPUSCULAR HEMOGLOBIN 30.9 pg (27.0-31.0); MEAN CORPUSCULAR HGB CONC 33.5 g/dL (32.0-36.0); MEAN CORPUSCULAR VOLUME 92.3 fL (81.0-99.0); MEAN PLATELET VOLUME 10.2 fL (7.9-10.8); RED BLOOD COUNT 3.49 10^6/uL (4.20-5.40); RED CELL DISTRIBUTION WIDTH 14.4 % (12.0-15.0); WHITE BLOOD COUNT 14.1 x10^3/uL (4.8-10.8)
[2021-03-11] MEDS: levoFLOXacin 750 MG/150 ML 750 MG/150 ML BAG IV SCH (05:19)
[2021-03-11] MEDS ORDERED: VANCOMYCIN INJ 1.75 GM in SODIUM CHLORIDE 0.9% 500 ML IV ONE ×2 (05:30→07:00)
[2021-03-11] MEDS: SODIUM CHLORIDE 0.9% 1,000 ML IV SCH (06:48)
[2021-03-11] MEDS: SERTRALINE 50 MG TABLET PO SCH (08:25)
[2021-03-11] MEDS: guaiFENesin 100 MG/5 ML UDC PO PRN ×2 (09:41→19:42)
[2021-03-11] MEDS ORDERED: LORazepam 0.5 MG TABLET SL PRN (11:15)
[2021-03-11] MEDS: BENZONATATE 100 MG CAPSULE PO PRN ×2 (12:05→17:33)
--- NOTE | 2021-03-11 12:05 | XRAY Report ---
PROCEDURE: Chest 1 View X-Ray INDICATIONS: Worsening Hypoxia. Pneumonia. TECHNIQUE: One view of the chest was acquired. COMPARISON: CT chest 03/09/2021, x-ray chest 03/09/2021 8:40 AM. FINDINGS: Surgical changes and devices: None. Lungs and pleura: In the interval since the earlier exam, there has been progressive interstitial pul monary opacities within the left hemithorax as well as right lower and middle lobes. Trace effusions are present. Mediastinum: Mediastinal contours appear normal. Heart size is normal. Bones and chest wall: No suspicious bony lesions. Overlying soft tissues appear unremarkable. IMPRESSION: Progressive bilateral pulmonary opacities most consistent with pneumonia. Trace effusions are noted. The above findings are concordant with preliminary report. Reviewed by: Chanda Sandra MD on 03/11/2021 12:03 PM PDT Approved by: Chanda Sandra MD on 03/11/2021 12:03 PM PDT Station ID: [id number]
[2021-03-11] MEDS: ACETAMINOPHEN 325 MG TABLET PO PRN (12:42)
[2021-03-11 13:28] LABS: HEPATITIS A IGM NON-REACTIVE (NON-REACTIVE); HEPATITIS B CORE ANTIBODY IGM NON-REACTIVE (NON-REACTIVE); HEPATITIS B SURFACE ANTIGEN NON-REACTIVE (NON-REACTIVE); HEPATITIS C ANTIBODY NON-REACTIVE (NON-REACTIVE)
--- NOTE | 2021-03-11 13:49 | PROVIDER PROGRESS NOTE ---
Subjective - Prog Note Date Prog Note Date: 03/11/21 Prog Note Time: 13:46 - Subjective Pt reports feeling: No change Subjective: Patient continues to complain of significant exhaustion. The time of exam was not complaining of subjective shortness of breath other than when ambulating. She does also admit to anxiety and would like to try something for this. Current Medications - Current Medications Current Medications: Current Medications Generic Name Dose Route Start Last Admin Trade Name Freq PRN Reason Stop Dose Admin Acetaminophen 650 mg 03/09/21 11:25 03/11/21 12:42 Acetaminophen 325 Mg Tablet PO 650 mg Q4HR PRN Administration FEVER > 100.5 F Benzonatate 100 mg 03/10/21 15:21 03/11/21 12:05 Benzonatate 100 Mg Capsule PO 100 mg TID PRN Administration Cough Guaifenesin 100 mg 03/10/21 00:20 03/11/21 09:41 Guaifenesin 100 Mg/5 Ml Udc PO 100 mg Q6HR PRN Administration Cough Sodium Chloride 1,000 mls @ 125 mls/hr 03/09/21 12:58 03/11/21 12:00 Normal Saline 0.9% IV 125 mls/hr .Q8H OCT[facility]IO Infusion Dobutamine HCl/Dextrose 500 mg in 250 mls @ 5.239 mls/hr 03/09/21 17:10 03/09/21 19:30 Dobutamine IV Not Given .[id number] OCTAVIO Protocol 2.5 MCG/KG/MIN Levofloxacin 750 mg in 150 mls @ 100 mls/hr 03/11/21 05:00 03/11/21 06:57 Levaquin 750 Mg/150 Ml IV Infused Q24H OCT[facility]IO Infusion Ibuprofen 400 mg 03/09/21 11:25 03/11/21 12:07 Ibuprofen 400 Mg Tablet PO 400 mg Q4HR PRN Administration Pain 1 to 4 Sertraline HCl 150 mg 03/11/21 09:00 03/11/21 08:25 Sertraline 50 Mg Tablet PO 150 mg DAILY OCTAVIO Administration Sodium Chloride 10 ml 03/09/21 11:25 03/09/21 19:30 Sodium Chloride Flush 0.9% 10 Ml Syringe IVP 10 ml PRN PRN Administration NEEDED PER PROVIDER ORDERS Sodium Chloride 10 ml 03/09/21 17:00 03/11/21 09:43 Sodium Chloride Flush 0.9% 10 Ml Syringe IVP 10 ml 0100,0900,1700 OCTAVIO Administration Objective - Vital Signs/Intake & Output Vital Signs: Vital Signs x48h Temp Pulse Resp BP Pulse Ox 03/11/21 12:45 37.3 C 112 H 26 H 133/72 H 93 03/11/21 11:30 38 H 88 L 03/11/21 11:00 36.9 C 99 30 H 148/85 H 87 L 03/11/21 10:00 36.8 C 95 35 H 131/83 H 90 L 03/11/21 09:00 95 32 H 123/77 95 03/11/21 08:00 36.6 C 60 18 145/70 H 96 03/11/21 07:15 93 03/11/21 07:00 80 35 H 117/75 96 03/11/21 06:52 39 H 96 03/11/21 06:00 92 29 H 117/72 95 Intake & Output: Intake & Output 03/08/21 03/09/21 03/10/21 03/11/21 23:59 23:59 23:59 23:59 Intake Total 5683.333 4802.666 3066.666 Output Total 1200 1400 800 Balance 4483.333 3402.666 2266.666 - Lab Results Fish Bones: 03/11/21 04:35 03/10/21 05:20 Other Labs: Lab Results x24hrs 03/11/21 03/11/21 03/10/21 Range/Units 04:35 04:35 05:20 WBC 14.1 H (4.8-10.8) x10^3/uL RBC 3.49 L (4.20-5.40) 10^6/uL Hgb 10.8 L (12.0-16.0) g/dL Hct 32.2 L (37.0-47.0) % MCV 92.3 (81.0-99.0) fL MCH 30.9 (27.0-31.0) pg MCHC 33.5 (32.0-36.0) g/dL RDW 14.4 (12.0-15.0) % Plt Count 301 (130-450) 10^3/uL MPV 10.2 (7.9-10.8) fL C-Reactive Protein 25.0 H (0-1.0) mg/dL Hepatitis A IgM Ab NON-REACTIVE (NON-REACTIVE) Hep Bs Antigen NON-REACTIVE (NON-REACTIVE) Hep B Core IgM Ab NON-REACTIVE (NON-REACTIVE) Hepatitis C Antibody NON-REACTIVE (NON-REACTIVE) Hep C Ab Signal/Cutoff 0.00 (<1.00) Sepsis Event Note (H) - Evaluation Current Stage of Sepsis: Sepsis Possible source of Sepsis: positive: Pulmonary - Sepsis Criteria Sepsis Criteria: Recorded Temperature greater than 38.3C or Less than 36C, Recorded Heart Rate greater than 90 bpm, WBC count greater than 12,000 or less than 4000, MAP less than 65 mmHg, Metabolic: lactate > 2 mmol/L Assessment/Plan - Problem List (1) Sepsis Impression: Sepsis is resolved with normalization of lactic acid level, and general improvement of tachycardia but still having occasional spikes in heart rate up to the low 100s. WBC overnight unchanged. Continue to treat pneumonia as below Qualifiers: Sepsis type: sepsis due to unspecified organism Sepsis acute organ dysfunction status: without acute organ dysfunction Qualified Code(s): A41.9 - Sepsis, unspecified organism (2) Pneumonia Impression: Pneumonia with now bilateral involvement showing new infiltrate development in the left lower lobe. Patient initially treated with his typical CAP protocol including azithromycin and Rocephin, but now with worsening bilateral consolidations, and declining respiratory status (patient now hypoxic up to 5 L oxygen requirement) and increased respiratory rate, agree with broadening antibiotics including vancomycin and Levaquin. Continue close observation, given decline status we will keep her in the ICU for now for close nursing observation. Qualifiers: Pneumonia type: due to unspecified organism Laterality: right Lung location: lower lobe of lung Qualified Code(s): J18.9 - Pneumonia, unspecified organism (3) Elevated transaminase level Impression: Relatively unchanged, likely secondary to sepsis. (4) Fever Qualifiers: Fever type: unspecified Qualified Code(s): R50.9 - Fever, unspecified (5) Hypotension Impression: Improved and currently hypertensive. (6) Generalized anxiety disorder Impression: Patient admits to more than baseline level anxiety. We did try 1 dose of 0.5 mg Ativan sublingual which did not help much. We will increase to 1.0 mg.
[2021-03-11] MEDS ORDERED: VANCOMYCIN INJ 1.25 GM in SODIUM CHLORIDE 0.9% 250 ML IV SCH ×2 (18:00→19:00)
--- NOTE | 2021-03-11 18:38 | PHARMACY PROGRESS NOTE ---
- Therapy Status Vancomycin regimen day #: 1 Therapy status: Awaiting steady state Basis for treatment: Empirical Treatment indication: Worsening pneumonia/Sepsis Trough goal: 15-20 Concurrent antibiotics: Levofloxacin - JOHNSON Risk Risk level for Acute Kidney Injury: High Acute Kidney Injury risk factors: Goal trough >15, Acute hypotensive event, Sepsis - Monitoring and Recommendation Clinical response to treatment: I&O Previous 24 hours 03/09/21 03/10/21 03/11/21 23:59 23:59 23:59 Intake Total 5683.333 4802.666 3850.750 Output Total 1200 1400 800 Balance 4483.333 3402.666 3050.750 Lab Results 03/10/21 03/09/21 05:20 08:20 BUN 9 10 Creatinine 0.7 0.9 Estimated GFR (MDRD) 88 L 65 L Cultures 03/09/21 09:01 Blood - Left Arm Blood Culture - Preliminary NO GROWTH AFTER 2 DAYS 03/09/21 08:20 Blood Blood Culture - Preliminary NO GROWTH AFTER 2 DAYS Monitoring plan: Daily serum creatinine, Suggest ongoing fluid replacement Next trough due prior to maintenance dose #: 4 Next trough due (date/time): 03/13/21 @ 0730 Areas for additional monitoring: IV to PO when appropriate, Therapy de- escalation based on culture results, Acute Kidney Injury Pharmacy recommendation: Continue current regime
[2021-03-11] MEDS: VANCOMYCIN INJ 1 GM in SODIUM CHLORIDE 0.9% 250 ML IV SCH (19:48)
[2021-03-11] MEDS: LORazepam 1 MG TABLET SL PRN (22:21)
[2021-03-12] MEDS: SODIUM CHLORIDE FLUSH 0.9% 10 ML SYRINGE IVP SCH ×4 (01:24→20:05)
[2021-03-12] MEDS: MORPHINE 2 MG/ML CARPUJECT IVP PRN ×6 (01:43→22:08)
[2021-03-12] MEDS: ACETAMINOPHEN 325 MG TABLET PO PRN ×2 (03:48→16:32)
[2021-03-12 04:52] LABS: HCT - HEMATOCRIT 31.1 % (37.0-47.0); HGB - HEMOGLOBIN 10.5 g/dL (12.0-16.0); MEAN CORPUSCULAR HEMOGLOBIN 30.6 pg (27.0-31.0); MEAN CORPUSCULAR HGB CONC 33.8 g/dL (32.0-36.0); MEAN CORPUSCULAR VOLUME 90.7 fL (81.0-99.0); MEAN PLATELET VOLUME 10.4 fL (7.9-10.8); RED BLOOD COUNT 3.43 10^6/uL (4.20-5.40); RED CELL DISTRIBUTION WIDTH 14.4 % (12.0-15.0); WHITE BLOOD COUNT 14.6 x10^3/uL (4.8-10.8)
[2021-03-12 05:02] LABS: CALCIUM 7.5 mg/dL (8.5-10.3); CREATININE 0.7 mg/dL (0.4-1.0); MAGNESIUM 2.1 mg/dL (1.7-2.8); PHOSPHORUS 4.3 mg/dL (2.5-4.6); POTASSIUM 3.4 mmol/L (3.5-5.0)
[2021-03-12] MEDS: levoFLOXacin 750 MG/150 ML 750 MG/150 ML BAG IV SCH (05:06)
[2021-03-12] MEDS ORDERED: POTASSIUM CHLORIDE 20 MEQ TABLET PO ONE (05:59)
[2021-03-12] MEDS ORDERED: POTASSIUM CHLOR 10 MEQ/100 ML 10 MEQ/100 ML BAG IV SCH (06:00)
[2021-03-12] MEDS ORDERED: FUROSEMIDE 20 MG/2 ML VIAL IVP STA (07:11)
[2021-03-12] MEDS: SODIUM CHLORIDE FLUSH 0.9% 10 ML SYRINGE IVP PRN ×3 (07:55→18:37)
[2021-03-12 07:56] LABS: ABG BASE EXCESS -2.8 mmol/L (-2.0-3.0); ABG HCO3 21.8 mmol/L (22.0-26.0); ABG OXYGEN SATURATION 94 % (94-98); ABG PCO2 37 mmHg (34-45); ABG PH 7.39 (7.35-7.45); ABG PO2 71 mmHg (80-100); ABG TCO2 22.9 MMOL/L (21.0-29.0); ALLEN TEST POSITIVE
[2021-03-12] MEDS: VANCOMYCIN INJ 1 GM in SODIUM CHLORIDE 0.9% 250 ML IV SCH ×2 (08:08→19:57)
[2021-03-12] MEDS: SERTRALINE 50 MG TABLET PO SCH (09:15)
[2021-03-12] MEDS: BENZONATATE 100 MG CAPSULE PO PRN ×2 (10:04→16:37)
--- NOTE | 2021-03-12 14:28 | PROVIDER PROGRESS NOTE ---
Subjective - Prog Note Date Prog Note Date: 03/12/21 Prog Note Time: 14:26 - Subjective Pt reports feeling: Improved Subjective: On morning rounds, patient reported feeling better. She does admit however that she still becomes quite short of breath when ambulating even minimally such as to the bathroom. Current Medications - Current Medications Current Medications: Current Medications Generic Name Dose Route Start Last Admin Trade Name Freq PRN Reason Stop Dose Admin Acetaminophen 650 mg 03/09/21 11:25 03/12/21 03:48 Acetaminophen 325 Mg Tablet PO 650 mg Q4HR PRN Administration FEVER > 100.5 F Benzonatate 100 mg 03/10/21 15:21 03/12/21 10:04 Benzonatate 100 Mg Capsule PO 100 mg TID PRN Administration Cough Guaifenesin 100 mg 03/10/21 00:20 03/11/21 19:42 Guaifenesin 100 Mg/5 Ml Udc PO 100 mg Q6HR PRN Administration Cough Levofloxacin 750 mg in 150 mls @ 100 mls/hr 03/11/21 05:00 03/12/21 06:39 Levaquin 750 Mg/150 Ml IV Infused Q24H OCTAVIO Infusion Vancomycin HCl 1 gm/ Sodium 250 mls @ 167 mls/hr 03/11/21 20:00 03/12/21 09:38 Chloride IV Infused Q12H OCTAVIO Infusion Ibuprofen 400 mg 03/09/21 11:25 03/11/21 12:07 Ibuprofen 400 Mg Tablet PO 400 mg Q4HR PRN Administration Pain 1 to 4 Lorazepam 1 mg 03/11/21 13:02 03/11/21 22:21 Lorazepam 1 Mg Tablet SL 1 mg Q6H PRN Administration Anxiety Morphine Sulfate 2 mg 03/12/21 01:30 03/12/21 10:19 Morphine 2 Mg/Ml Carpuject IVP 2 mg Q4HR PRN Administration Dyspnea Sertraline HCl 150 mg 03/11/21 09:00 03/12/21 09:15 Sertraline 50 Mg Tablet PO 150 mg DAILY OCTAVIO Administration Sodium Chloride 10 ml 03/09/21 11:25 03/12/21 07:55 Sodium Chloride Flush 0.9% 10 Ml Syringe IVP 10 ml PRN PRN Administration NEEDED PER PROVIDER ORDERS Sodium Chloride 10 ml 03/09/21 17:00 06/26/21 10:21 Sodium Chloride Flush 0.9% 10 Ml Syringe IVP 10 ml 0100,0900,1700 OCTAVIO Administration Objective - Vital Signs/Intake & Output Reviewed Vital Signs: Yes Vital Signs: Vital Signs x48h Temp Pulse Pulse Resp BP Pulse Ox 03/12/21 13:17 78 03/12/21 13:00 81 28 H 102/71 95 03/12/21 12:00 36.8 C 84 30 H 99/66 93 03/12/21 11:36 86 03/12/21 11:00 80 20 119/73 93 03/12/21 10:00 88 30 H 125/76 98 03/12/21 09:17 86 03/12/21 09:00 88 26 H 109/65 97 03/12/21 08:00 91 38 H 124/86 H 95 03/12/21 07:51 36.6 C 79 29 H 97 03/12/21 07:20 91 03/12/21 07:00 80 27 H 107/69 95 Intake & Output: Intake & Output 03/09/21 03/10/21 03/11/21 03/12/21 23:59 23:59 23:59 23:59 Intake Total 5683.333 4802.666 4690.750 880 Output Total 1200 1474 513 2924 Balance 4483.333 3402.666 3790.750 2260 - Objective General Appearance: positive: No acute distress, Anxious Eyes Bilateral: positive: Normal inspection ENT: positive: ENT inspection nml Neck: positive: Nml inspection Respiratory: positive: Chest non-tender, No respiratory distress, Breath sounds nml (Diminished and patient's respiratory rate is increased), Other (She is on BiPAP with facemask tolerating it well at the time of exam) Cardiovascular: positive: Regular rate & rhythm, No murmur, No gallop Abdomen: positive: Non-tender, No organomegaly, Nml bowel sounds, No distention Skin: positive: Color nml, No rash Extremities: positive: Non-tender Neurologic/Psychiatric: positive: Oriented x3, CN's nml (2-12), Motor nml, Sen sation nml, Mood/affect nml - Lab Results Fish Bones: 03/12/21 04:15 03/12/21 04:15 Other Labs: Lab Results x24hrs 03/12/21 03/12/21 03/12/21 Range/Units 07:45 04:15 04:15 WBC (4.8-10.8) x10^3/uL RBC (4.20-5.40) 10^6/uL Hgb (12.0-16.0) g/dL Hct (37.0-47.0) % MCV (81.0-99.0) fL MCH (27.0-31.0) pg MCHC (32.0-36.0) g/dL RDW (12.0-15.0) % Plt Count (130-450) 10^3/uL MPV (7.9-10.8) fL Bld Gas Analysis Time 0745 Sample Site LEFT RADIAL ABG pH 7.39 (7.35-7.45) ABG pCO2 37 (34-45) mmHg ABG pO2 71 L (80-100) mmHg ABG HCO3 21.8 L (22.0-26.0) mmol/L ABG Total CO2 22.9 (21.0-29.0) MMOL/L ABG O2 Saturation 94 (94-98) % ABG Base Excess -2.8 L (-2.0-3.0) mmol/L Lj Test POSITIVE O2 Delivery Device BiPAP FiO2 50.00 EPAP 5 cmH2O IPAP 10 cmH2O Sodium (135-145) mmol/L Potassium (3.5-5.0) mmol/L Chloride (101-111) mmol/L Carbon Dioxide (21-32) mmol/L Anion Gap (6-13) BUN (6-20) mg/dL Creatinine (0.4-1.0) mg/dL Estimated GFR (MDRD) (>89) Glucose (70-100) mg/dL Calcium (8.5-10.3) mg/dL Phosphorus (2.5-4.6) mg/dL Magnesium (1.7-2.8) mg/dL B-Natriuretic Peptide 508 H (5-100) pg/mL Albumin 2.2 L (3.2-5.5) g/dL 03/12/21 03/12/21 Range/Units 04:15 04:15 WBC 14.6 H (4.8-10.8) x10^3/uL RBC 3.43 L (4.20-5.40) 10^6/uL Hgb 10.5 L (12.0-16.0) g/dL Hct 31.1 L (37.0-47.0) % MCV 90.7 (81.0-99.0) fL MCH 30.6 (27.0-31.0) pg MCHC 33.8 (32.0-36.0) g/dL RDW 14.4 (12.0-15.0) % Plt Count 379 (130-450) 10^3/uL MPV 10.4 (7.9-10.8) fL Bld Gas Analysis Time Sample Site ABG pH (7.35-7.45) ABG pCO2 (34-45) mmHg ABG pO2 (80-100) mmHg ABG HCO3 (22.0-26.0) mmol/L ABG Total CO2 (21.0-29.0) MMOL/L ABG O2 Saturation (94-98) % ABG Base Excess (-2.0-3.0) mmol/L Lj Test O2 Delivery Device FiO2 EPAP cmH2O IPAP cmH2O Sodium 136 (135-145) mmol/L Potassium 3.4 L (3.5-5.0) mmol/L Chloride 107 (101-111) mmol/L Carbon Dioxide 21 (21-32) mmol/L Anion Gap 8.0 (6-13) BUN 10 (6-20) mg/dL Creatinine 0.7 (0.4-1.0) mg/dL Estimated GFR (MDRD) 88 L (>89) Glucose 119 H (70-100) mg/dL Calcium 7.5 L (8.5-10.3) mg/dL Phosphorus 4.3 (2.5-4.6) mg/dL Magnesium 2.1 (1.7-2.8) mg/dL B-Natriuretic Peptide (5-100) pg/mL Albumin (3.2-5.5) g/dL - Diagnostic Imaging Diagnostic Imaging Results: positive: Final report reviewed ABX Reporting Has patient been on IV antibiotics over the past 48 hours?: Yes Sepsis Event Note (H) - Evaluation Current Stage of Sepsis: Sepsis Possible source of Sepsis: positive: Pulmonary - Sepsis Criteria Sepsis Criteria: Recorded Temperature greater than 38.3C or Less than 36C, Recorded Heart Rate greater than 90 bpm, WBC count greater than 12,000 or less than 4000, MAP less than 65 mmHg, Metabolic: lactate > 2 mmol/L Assessment/Plan - Problem List (1) Pneumonia Impression: Patient has clinically worsened over the last 48 hours or so. Repeat imaging yesterday morning shows worsening of the previously questioned left lung now showing clear evidence of left lower lobe pneumonia, meaning she now has bilateral pneumonia. MRSA swab was negative however she did not respond to azithromycin and Rocephin so antibiotics were broadened to Vancomycin and Levaquin. Due to increased respiratory effort, she was put on BiPAP overnight. She is tolerating it well. ABGs are relatively reassuring this morning however still has decreased PO2 70.9 We will leave patient in ICU for close observation, as I do have concerns about her respiratory rate and continued oxygen requirements but does feel better subjectively and I think she is on appropriate antibiotics. Additionally, she was given a dose of Lasix earlier this morning with concerns for possible fluid overload given the fluids required to initially resuscitate her for the presenting sepsis. Hopefully she will respond to the Lasix and the change in antibiotics but for now keep her in ICU and continue current treatment plan. Qualifiers: Pneumonia type: due to unspecified organism Laterality: bilateral Lung location: lower lobe of lung Qualified Code(s): J18.9 - Pneumonia, unspecified organism (2) Sepsis Impression: As above Qualifiers: Sepsis type: sepsis due to unspecified organism Sepsis acute organ dysfunction status: without acute organ dysfunction Qualified Code(s): A41.9 - Sepsis, unspecified organism (3) Elevated transaminase level Impression: Hep panel negative. This is likely 2/2 initial septic picture with hypotension. Somewhat improved on yesterday's labs. Will recheck in am. (4) Generalized anxiety disorder Impression: Doing better Cont Zoloft PRN Ativan, has been used sparingly, will leave on MAR for as needed use.
[2021-03-12] MEDS: guaiFENesin 100 MG/5 ML UDC PO PRN ×2 (16:36→22:08)
[2021-03-12 16:49] LABS: ABG BASE EXCESS -0.5 mmol/L (-2.0-3.0); ABG OXYGEN SATURATION 95 % (94-98); ABG PCO2 39 mmHg (34-45); ABG PH 7.41 (7.35-7.45); ABG PO2 80 mmHg (80-100); ABG TCO2 25.2 MMOL/L (21.0-29.0); ALLEN TEST POSITIVE
[2021-03-13] MEDS: BENZONATATE 100 MG CAPSULE PO PRN ×2 (00:18→08:24)
[2021-03-13] MEDS: LORazepam 1 MG TABLET SL PRN ×2 (00:18→08:24)
[2021-03-13] MEDS: MORPHINE 2 MG/ML CARPUJECT IVP PRN ×3 (01:36→10:18)
[2021-03-13] MEDS: ACETAMINOPHEN 325 MG TABLET PO PRN (02:52)
[2021-03-13] MEDS: levoFLOXacin 750 MG/150 ML 750 MG/150 ML BAG IV SCH (04:51)
[2021-03-13] MEDS: SODIUM CHLORIDE FLUSH 0.9% 10 ML SYRINGE IVP PRN (04:57)
[2021-03-13 05:16] LABS: BASOPHILS % (AUTO) 0.5 %; EOSINOPHILS % (AUTO) 0.4 %; HCT - HEMATOCRIT 30.3 % (37.0-47.0); HGB - HEMOGLOBIN 10.2 g/dL (12.0-16.0); LYMPHOCYTES % (AUTO) 6.2 %; MEAN CORPUSCULAR HEMOGLOBIN 30.7 pg (27.0-31.0); MEAN CORPUSCULAR HGB CONC 33.7 g/dL (32.0-36.0); MEAN CORPUSCULAR VOLUME 91.3 fL (81.0-99.0); MEAN PLATELET VOLUME 10.2 fL (7.9-10.8); MONOCYTES % (AUTO) 8.2 %; NEUTROPHILS % (AUTO) 82.9 %; PLT - PLATELET COUNT 415 10^3/uL (130-450); RED BLOOD COUNT 3.32 10^6/uL (4.20-5.40); RED CELL DISTRIBUTION WIDTH 14.5 % (12.0-15.0); WHITE BLOOD COUNT 18.6 x10^3/uL (4.8-10.8)
[2021-03-13 05:26] LABS: ALBUMIN 2.1 g/dL (3.2-5.5); ALBUMIN/GLOBULIN RATIO 0.6 (1.0-2.2); BILIRUBIN,TOTAL 0.8 mg/dL (0.2-1.0); CALCIUM 7.5 mg/dL (8.5-10.3); CREATININE 0.7 mg/dL (0.4-1.0); MAGNESIUM 2.1 mg/dL (1.7-2.8); PHOSPHORUS 4.2 mg/dL (2.5-4.6); POTASSIUM 3.1 mmol/L (3.5-5.0); TOTAL PROTEIN 5.4 g/dL (6.7-8.2)
[2021-03-13] MEDS ORDERED: POTASSIUM CHLORIDE 20 MEQ TABLET PO ONE ×2 (05:28→09:00)
[2021-03-13 05:29] LABS: ABNORMAL LYMPHS % (MANUAL) 0 %; BAND NEUTROPHILS % (MANUAL) 0 %
[2021-03-13 05:54] LABS: BASOPHILS # (MANUAL) 0.2 10^3/uL (0-0.1); BASOPHILS % (MANUAL) 1 %; DIFFERENTIAL COMMENT MANUAL DIFFERENTIAL; LYMPHOCYTES # (MANUAL) 1.7 10^3/uL (1.5-3.5); LYMPHOCYTES % (MANUAL) 9 %; MONOCYTES # (MANUAL) 1.7 10^3/uL (0.0-1.0); NEUTROPHILS # (MANUAL) 15.1 10^3/uL (1.5-6.6); PLATELET ESTIMATE, MANUAL NORMAL (130-450,000) (NORMAL); RBC MORPHOLOGY (MULTIPLE) NORMAL APPEARANCE (NORMAL)
[2021-03-13 07:41] LABS: VANCOMYCIN,TROUGH 5.8 ug/mL (10.0-20.0)
[2021-03-13] MEDS: SERTRALINE 50 MG TABLET PO SCH (08:23)
[2021-03-13] MEDS: VANCOMYCIN INJ 1 GM in SODIUM CHLORIDE 0.9% 250 ML IV SCH (08:24)
[2021-03-13] MEDS: SODIUM CHLORIDE FLUSH 0.9% 10 ML SYRINGE IVP SCH (08:29)
--- NOTE | 2021-03-13 08:50 | XRAY Report ---
PROCEDURE: Chest 1 View X-Ray INDICATIONS: Pnuemonia, Follow Up TECHNIQUE: One view of the chest was acquired. COMPARISON: 03/11/2021 FINDINGS: Surgical changes and devices: None. Lungs and pleura: Significant interval worsening of bilateral airspace disease. There is now dense co nsolidation of most of the right lung. There is increased consolidation in the left upper and middle lung gonsalez with slight improvement in the left base. Mediastinum: Mediastinal contours appear normal. Heart size is normal. Bones and chest wall: No suspicious bony lesions. Overlying soft tissues appear unremarkable. IMPRESSION: Significant interval worsening of pulmonary status. Extensive bilateral infiltrates, right greater th an left. Reviewed by: Arvind Cloud MD on 03/13/2021 7:49 AM [facility] Approved by: Arvind Cloud MD on 03/13/2021 7:49 AM [facility] Station ID: [id number]
--- NOTE | 2021-03-13 10:56 | PROVIDER PROGRESS NOTE ---
Subjective - Prog Note Date Prog Note Date: 03/13/21 Prog Note Time: 10:54 - Subjective Pt reports feeling: No change (Despite tachypnea with respiratory rate often in the 40s, patient denies any increased work of breathing subjectively. Generally stating that she feels fair. Denies any pain. Denies subjective shortness of breath when lying and rest but easily worsened with minimal movement or activity.) Current Medications - Current Medications Current Medications: Current Medications Generic Name Dose Route Start Last Admin Trade Name Freq PRN Reason Stop Dose Admin Acetaminophen 650 mg 03/09/21 11:25 03/13/21 02:52 Acetaminophen 325 Mg Tablet PO 650 mg Q4HR PRN Administration FEVER > 100.5 F Benzonatate 100 mg 03/10/21 15:21 03/13/21 08:24 Benzonatate 100 Mg Capsule PO 100 mg TID PRN Administration Cough Guaifenesin 100 mg 03/10/21 00:20 03/12/21 22:08 Guaifenesin 100 Mg/5 Ml Udc PO 100 mg Q6HR PRN Administration Cough Levofloxacin 750 mg in 150 mls @ 100 mls/hr 03/11/21 05:00 03/13/21 06:34 Levaquin 750 Mg/150 Ml IV Infused Q24H OCTAVIO Infusion Vancomycin HCl 1 gm/ Sodium 250 mls @ 167 mls/hr 03/11/21 20:00 03/13/21 08:24 Chloride IV 03/13/21 11:00 167 mls/hr Q12H OCTAVIO Administration Ibuprofen 400 mg 03/09/21 11:25 03/11/21 12:07 Ibuprofen 400 Mg Tablet PO 400 mg Q4HR PRN Administration Pain 1 to 4 Lorazepam 1 mg 03/11/21 13:02 03/13/21 08:24 Lorazepam 1 Mg Tablet SL 1 mg Q6H PRN Administration Anxiety Morphine Sulfate 2 mg 03/12/21 01:30 03/13/21 10:18 Morphine 2 Mg/Ml Carpuject IVP 2 mg Q4HR PRN Administration Dyspnea Sertraline HCl 150 mg 03/11/21 09:00 03/13/21 08:23 Sertraline 50 Mg Tablet PO 150 mg DAILY OCTAVIO Administration Sodium Chloride 10 ml 03/09/21 11:25 03/13/21 04:57 Sodium Chloride Flush 0.9% 10 Ml Syringe IVP 10 ml PRN PRN Administration NEEDED PER PROVIDER ORDERS Sodium Chloride 10 ml 03/09/21 17:00 03/13/21 08:29 Sodium Chloride Flush 0.9% 10 Ml Syringe IVP 10 ml 0100,0900,1700 OCTAVIO Administration Objective - Vital Signs/Intake & Output Reviewed Vital Signs: Yes Vital Signs: Vital Signs x48h Temp Pulse Pulse Resp BP Pulse Ox 03/13/21 10:45 96 03/13/21 10:00 37.1 C 100 49 H 110/48 L 92 03/13/21 09:27 37 H 91 L 03/13/21 09:00 37.4 C 100 91 54 H 119/66 96 03/13/21 08:00 37.3 C 91 46 H 122/71 95 03/13/21 07:00 86 36 H 116/63 93 03/13/21 06:23 93 03/13/21 06:00 85 36 H 106/58 L 93 03/13/21 05:00 83 29 H 104/59 L 93 03/13/21 04:00 36.0 C L 90 36 H 93/60 93 03/13/21 03:00 38.4 C H 92 101 H 42 H 116/73 94 Intake & Output: Intake & Output 03/10/21 03/11/21 03/12/21 03/13/21 23:59 23:59 23:59 23:59 Intake Total 4802.666 4690.750 1220 250 Output Total 2671 050 8043 560 Balance 3402.666 3790.750 -2580 -310 - Objective General Appearance: positive: No acute distress Eyes Bilateral: positive: Normal inspection ENT: positive: ENT inspection nml Neck: positive: Nml inspection Respiratory: positive: Chest non-tender, No respiratory distress. negative: Breath sounds nml (Mildly diminished breath sounds bilaterally. Respiratory rate is increased. No wheezes. No crackles or rails.) Cardiovascular: positive: Regular rate & rhythm, No murmur, No gallop Abdomen: positive: Non-tender, No organomegaly, Nml bowel sounds, No distention Rectal: positive: Non-tender Skin: positive: Color nml, No rash, Warm Extremities: positive: Non-tender, Nml appearance Neurologic/Psychiatric: positive: Oriented x3, CN's nml (2-12) - Lab Results Fish Bones: 03/13/21 04:19 03/13/21 04:19 Other Labs: Lab Results x24hrs 03/13/21 03/13/21 03/13/21 Range/Units 07:22 07:22 04:19 WBC 18.6 H (4.8-10.8) x10^3/uL RBC 3.32 L (4.20-5.40) 10^6/uL Hgb 10.2 L (12.0-16.0) g/dL Hct 30.3 L (37.0-47.0) % MCV 91.3 (81.0-99.0) fL MCH 30.7 (27.0-31.0) pg MCHC 33.7 (32.0-36.0) g/dL RDW 14.5 (12.0-15.0) % Plt Count 415 (130-450) 10^3/uL MPV 10.2 (7.9-10.8) fL Neut # (Auto) Not Reportable Lymph # (Auto) Not Reportable [place] # (Auto) Not Reportable Eos # (Auto) Not Reportable Baso # (Auto) Not Reportable Absolute Nucleated RBC Not Reportable Total Counted 100 Band Neuts % (Manual) 0 (0 - 10) % Abnorm Lymph % (Manual) 0 % Nucleated RBC % Not Reportable Neutrophils # (Manual) 15.1 H (1.5-6.6) 10^3/uL Lymphocytes # (Manual) 1.7 (1.5-3.5) 10^3/uL Monocytes # (Manual) 1.7 H (0.0-1.0) 10^3/uL Eosinophils # (Manual) 0.0 (0-0.7) 10^3/uL Basophils # (Manual) 0.2 H (0-0.1) 10^3/uL Differential Comment MANUAL DIFFERENTIAL Platelet Estimate NORMAL (130-450,000) (NORMAL) RBC Morph Micro Appear NORMAL APPEARANCE (NORMAL) Bld Gas Analysis Time Sample Site ABG pH (7.35-7.45) ABG pCO2 (34-45) mmHg ABG pO2 (80-100) mmHg ABG HCO3 (22.0-26.0) mmol/L ABG Total CO2 (21.0-29.0) MMOL/L ABG O2 Saturation (94-98) % ABG Base Excess (-2.0-3.0) mmol/L Lj Test O2 Delivery Device FiO2 EPAP cmH2O IPAP cmH2O Sodium (135-145) mmol/L Potassium (3.5-5.0) mmol/L Chloride (101-111) mmol/L Carbon Dioxide (21-32) mmol/L Anion Gap (6-13) BUN (6-20) mg/dL Creatinine (0.4-1.0) mg/dL Estimated GFR (MDRD) (>89) Glucose (70-100) mg/dL Calcium (8.5-10.3) mg/dL Phosphorus (2.5-4.6) mg/dL Magnesium (1.7-2.8) mg/dL Total Bilirubin (0.2-1.0) mg/dL AST (10-42) IU/L ALT (10-60) IU/L Alkaline Phosphatase (42-121) IU/L C-Reactive Protein 34.2 H (0-1.0) mg/dL Total Protein (6.7-8.2) g/dL Albumin (3.2-5.5) g/dL Globulin (2.1-4.2) g/dL Albumin/Globulin Ratio (1.0-2.2) Last Dose Date 03/12/21 Last Dose Time 2138 Vancomycin Trough 5.8 L (10.0-20.0) ug/mL Ur L.pneumophila Ag 03/13/21 03/12/21 03/09/21 Range/Units 04:19 16:40 15:03 WBC (4.8-10.8) x10^3/uL RBC (4.20-5.40) 10^6/uL Hgb (12.0-16.0) g/dL Hct (37.0-47.0) % MCV (81.0-99.0) fL MCH (27.0-31.0) pg MCHC (32.0-36.0) g/dL RDW (12.0-15.0) % Plt Count (130-450) 10^3/uL MPV (7.9-10.8) fL Neut # (Auto) Lymph # (Auto) [place] # (Auto) Eos # (Auto) Baso # (Auto) Absolute Nucleated RBC Total Counted Band Neuts % (Manual) (0 - 10) % Abnorm Lymph % (Manual) % Nucleated RBC % Neutrophils # (Manual) (1.5-6.6) 10^3/uL Lymphocytes # (Manual) (1.5-3.5) 10^3/uL Monocytes # (Manual) (0.0-1.0) 10^3/uL Eosinophils # (Manual) (0-0.7) 10^3/uL Basophils # (Manual) (0-0.1) 10^3/uL Differential Comment Platelet Estimate (NORMAL) RBC Morph Micro Appear (NORMAL) Bld Gas Analysis Time 1647 Sample Site LEFT RADIAL ABG pH 7.41 (7.35-7.45) ABG pCO2 39 (34-45) mmHg ABG pO2 80 (80-100) mmHg ABG HCO3 24.0 (22.0-26.0) mmol/L ABG Total CO2 25.2 (21.0-29.0) MMOL/L ABG O2 Saturation 95 (94-98) % ABG Base Excess -0.5 (-2.0-3.0) mmol/L Lj Test POSITIVE O2 Delivery Device BiPAP FiO2 60.00 EPAP 5 cmH2O IPAP 10 cmH2O Sodium 136 (135-145) mmol/L Potassium 3.1 L (3.5-5.0) mmol/L Chloride 103 (101-111) mmol/L Carbon Dioxide 22 (21-32) mmol/L Anion Gap 11.0 (6-13) BUN 13 (6-20) mg/dL Creatinine 0.7 (0.4-1.0) mg/dL Estimated GFR (MDRD) 88 L (>89) Glucose 104 H (70-100) mg/dL Calcium 7.5 L (8.5-10.3) mg/dL Phosphorus 4.2 (2.5-4.6) mg/dL Magnesium 2.1 (1.7-2.8) mg/dL Total Bilirubin 0.8 (0.2-1.0) mg/dL AST 39 (10-42) IU/L ALT 94 H (10-60) IU/L Alkaline Phosphatase 313 H (42-121) IU/L C-Reactive Protein (0-1.0) mg/dL Total Protein 5.4 L (6.7-8.2) g/dL Albumin 2.1 L (3.2-5.5) g/dL Globulin 3.3 (2.1-4.2) g/dL Albumin/Globulin Ratio 0.6 L (1.0-2.2) Last Dose Date Last Dose Time Vancomycin Trough (10.0-20.0) ug/mL Ur L.pneumophila Ag NOT DETECTED - Diagnostic Imaging Diagnostic Imaging Results: positive: Final report reviewed, Read independently ABX Reporting Has patient been on IV antibiotics over the past 48 hours?: Yes Sepsis Event Note (H) - Evaluation Current Stage of Sepsis: Sepsis Possible source of Sepsis: positive: Pulmonary - Sepsis Criteria Sepsis Criteria: Recorded Temperature greater than 38.3C or Less than 36C, Recorded Heart Rate greater than 90 bpm, WBC count greater than 12,000 or less than 4000, MAP less than 65 mmHg, Metabolic: lactate > 2 mmol/L Assessment/Plan - Problem List (1) Pneumonia Impression: Patient continues to show lack of progression to treatment of community-acquired pneumonia. X-ray 2 days ago demonstrated new involvement of left lung having worsened from the initial right lower lobe pneumonia on admission. Given persistent tachypnea and BiPAP dependent hypoxia, repeat chest x-ray was ordered today. I independently read and reviewed this x-ray and agree with the interpretation by radiology that this is significantly worsened though notably there is a sharpening of the costophrenic angle of the left lung suggesting probable improvement in the fluid status with resolution of the left lung the pleural effusion. Additionally, WBC count has not improved and CRP has trended up. Given the worsening consolidation I am concerned that she has resistant gram- negative bacteria leading to double lung pneumonia so we will broaden antibiotic coverage by adding cefepime. Have discussed with pharmacy who is in concurrence. We will continue to monitor closely. Qualifiers: Pneumonia type: due to unspecified organism Laterality: bilateral Lung location: lower lobe of lung Qualified Code(s): J18.9 - Pneumonia, unspecified organism (2) Sepsis Impression: As above, pneumonia is being aggressively treated with now broadening of antibiotics to include double gram-negative coverage. From intensive purposes sepsis can be deemed resolved at this point given that she is hemodynamically stable however continues to be in a guarded state. Qualifiers: Sepsis type: sepsis due to unspecified organism Sepsis acute organ dysfunction status: without acute organ dysfunction Qualified Code(s): A41.9 - Sepsis, unspecified organism (3) Elevated transaminase level Impression: Hepatitis panel negative. Likely secondary to hypoperfusion in setting of shock. Continue to monitor periodic labs. (4) Generalized anxiety disorder Impression: Stable Cont PRN lorazepam, morphine to help regulate breathing.
[2021-03-13] MEDS ORDERED: CEFEPIME 2 GM in SODIUM CHLORIDE 0.9% MINIBAG 100 ML IV SCH (11:00)
[2021-03-13] MEDS ORDERED: SUCCINYLCHOLINE 200 MG/10 ML VIAL IVP ONE (13:51)
[2021-03-13] MEDS ORDERED: KETAMINE 500 MG/10 ML VIAL IVP ONE (13:51)
[2021-03-13] MEDS: PROPOFOL 500 MG/50 ML 500 MG/50 ML VIAL IV SCH ×2 (14:59→15:15)
--- NOTE | 2021-03-13 15:05 | ED Physician Documentation ---
ED Addendum - Addendum Addendum: 03/13/21 15:05 I was called about the bedside by Dr. Burks, she has developed worsening progressive respiratory decline. She needed intubation. She was preoxygenated, she was already on BiPAP and this was turned up to 100%. She was medicated with 200 mg of ketamine and 200 mg of succinylcholine IV. Using the glide scope a 7.5 tube was passed to 23 cm at the lips using real-time visualization with bilateral rhonchorous breath sounds. Brief hypoxemia which resolved with bagging. Care back to primary team.
--- NOTE | 2021-03-13 15:22 | PHARMACY PROGRESS NOTE ---
- Therapy Status Vancomycin regimen day #: 3 Therapy status: Trough subtherapeutic Basis for treatment: Empirical Trough goal: 15-20 - JOHNSON Risk Risk level for Acute Kidney Injury: High Acute Kidney Injury risk factors: Goal trough >15, Acute hypotensive event, Sepsis - Monitoring and Recommendation Clinical response to treatment: I&O Previous 24 hours 03/11/21 03/12/21 03/13/21 23:59 23:59 23:59 Intake Total 4690.750 1220 601.118 Output Total 900 3800 849 Balance 3790.750 -2580 -247.882 Lab Results 03/13/21 03/12/21 03/10/21 04:19 04:15 05:20 BUN 13 10 9 Creatinine 0.7 0.7 0.7 Estimated GFR (MDRD) 88 L 88 L 88 L 03/09/21 08:20 BUN 10 Creatinine 0.9 Estimated GFR (MDRD) 65 L Vancomycin Monitoring 03/13/21 07:22 Vancomycin Trough 5.8 L Cultures 03/09/21 09:01 Blood - Left Arm Blood Culture - Preliminary NO GROWTH AFTER 2 DAYS 03/09/21 08:20 Blood Blood Culture - Preliminary NO GROWTH AFTER 2 DAYS Monitoring plan: Daily serum creatinine, Suggest ongoing fluid replacement Next trough due prior to maintenance dose #: 5 Next trough due (date/time): 03/14 @ 1530 Areas for additional monitoring: IV to PO when appropriate, Therapy de- escalation based on culture results, Acute Kidney Injury Pharmacy recommendation: Increase dose
[2021-03-13] MEDS ORDERED: ROCURONIUM 50 MG/5 ML VIAL ONE (15:34)
[2021-03-13] MEDS ORDERED: DEXMEDETOMIDINE 400 MCG/100 ML 100 ML IV SCH (16:00)
[2021-03-13] MEDS ORDERED: VANCOMYCIN INJ 1 GM in SODIUM CHLORIDE 0.9% 250 ML IV SCH (16:00)
[2021-03-13 16:13] LABS: ABG PH 7.38 (7.35-7.45)
[2021-03-13 16:14] LABS: ABG BASE EXCESS 0.6 mmol/L (-2.0-3.0); ABG HCO3 26.1 mmol/L (22.0-26.0); ABG PCO2 45 mmHg (34-45); ABG PO2 100 mmHg (80-100); ABG TCO2 27.5 MMOL/L (21.0-29.0)
[2021-03-13 16:24] LABS: ABG MODE OF VENTILATION SIMV; ABG RESPIRATORY RATE 20 b/min
--- NOTE | 2021-03-13 16:32 | XRAY Report ---
PROCEDURE: Chest 1 View X-Ray INDICATIONS: Confirm ET placement TECHNIQUE: One view of the chest was acquired. COMPARISON: Earlier on the same date, 0813 hours FINDINGS: Surgical changes and devices: Interval insertion of ET tube, in satisfactory position. Lungs and pleura: Progressive worsening of pulmonary status, with dense bilateral airspace consolidat ion, increased from earlier today, as well as development of bilateral pleural effusions. Mediastinum: Mediastinal contours appear normal. Heart size is normal. Bones and chest wall: No suspicious bony lesions. Overlying soft tissues appear unremarkable. IMPRESSION: 1. ET tube in satisfactory position. 2. Significant interval worsening of pulmonary status. Reviewed by: Arvind Cloud MD on 03/13/2021 3:30 PM [facility] Approved by: Arvind Cloud MD on 03/13/2021 3:30 PM [facility] Station ID: [id number]
--- NOTE | 2021-03-13 16:32 | Discharge Plan ---
Discharge Plan Problem Reviewed?: Yes Disposition: 02 Transfer Acute Care Hosp Condition: Critical Instruction Topics: Guaifenesin oral solution and syrup, Vancomycin injection, Levofloxacin injection, Pneumonia Plan of Treatment: Transfer to [facility] for critical care/pulmonology specialty care, admission to MICU. No Smoking: If you smoke, Please STOP! Call for help. Follow-up with: Preethi Bentley PA-C [Primary Care Provider] -
--- NOTE | 2021-03-13 16:36 | DISCHARGE SUMMARY ---
"Discharge Summary Admit Date: 03/13/21 Discharge Date: 03/13/21 Discharging Provider: Adria Burks MD Primary Care Provider: Preethi Bentley Code Status: Attempt Resuscitation Condition at Discharge: Critical Discharge Disposition: 02 Transfer Acute Care Hosp Discharge Facility Name: Hospital discharging to [facility] - DIAGNOSES Admission Diagnoses: Sepsis Pneumonia Elevated transaminase level Fever Hypotension Major depressive disorder Discharge Diagnoses with Status of Each Condition: Community-acquired pneumoniaworsened, progressed to bilateral Acute respiratory distress syndromenewly developed on day of discharge Acute respiratory failure with hypoxia - Hypoxia developed and worsened since admission, now require mechanical intubation - HPI History of Present Illness: Patient is a 51-year-old relatively healthy female who presents emergency room after 5 days of of fever noticed at home initially. Patient states that on Sunday, 5 days ago, in the morning she started to feel chills and checked her temperature was found to be 100 F. This continued for several days. She went to see her PCP earlier this week and was found to be febrile at their office as well as tachycardic and was directed to come to the emergency room for further evaluation. At the time, she had no other significant symptoms of fever. Specifically she denied any cough, shortness of breath, abdominal pain, nausea vomiting, dysuria, rash, headache and denied recent exposure to COVID-19. She denied recent travel In the ER, lab work was not repeated because it had just been done in her doctor's office prior to being sent to the ER. Lab work was not available for review at the time of the ER visit because she was afebrile and had a relatively benign exam she was discharged home with further instructions to follow-up as needed. Patient states she logged into her patient portal and noticed abnormal labs, and also was continued to have fevers through today when she decided she needed to come to the emergency room for further evaluation. In the ER here, patient had mild hyponatremia of sodium 133, and elevated AST and ALT at 101 111 respectively. Her alk phos was also initially 151 on 03/07/2021, which increased to 218 today. Because of the mild elevation in LFTs, ER physician ordered an abdominal ultrasound which was relatively nonspecific. Also, her lactic acid level was 3.0 in the ER. Her initial vitals in the ER were remarkable for temperature 102.9 F, heart rate 117, and mildly soft blood pressure of 104/61. She was saturating well on room air. Chest x-ray was done which suggestive of right lower lobe pneumonia. She was given 2 L of IV fluids, and Rocephin as well as azithromycin and hospitalist admission was requested. - CONSULTS | PROCEDURES Consultations: Informal consultation with Dr. Lonnie Hernández, visiting [facility] Procedures: Arterial line, mechanical intubation, central line - HOSPITAL COURSE Hospital Course: On admission, patient was initially admitted to medical surgical bed and treated for sepsis with pneumonia starting with Rocephin and azithromycin and IV fluids. Her lactic acidosis diagnosed in the ED was resolved quickly after fluid resuscitation. However, despite IV fluid resuscitation blood pressures started to drop and remained soft with systolics as low as the 70s and diastolics as low as the 40s. Despite the hypotension she was saturating well on room air, asymptomatic, with no respiratory complaints. But after several hours of persistent hypotension, the decision was made to transfer her to ICU for dobutamine infusion. However, after being transferred to ICU and prior to hanging of the dobutamine infusion, blood pressure started to improve and she essentially never required dobutamine or other blood pressure support. Day 2 of hospitalization she was hypoxic and subjectively felt worse. WBC increased from 12,000-14,000.CT angiogram was done to rule out a pulmonary embolus and this came back negative. Day 3 she was complaining of exhaustion, generalized malaise and fatigue, but denying any shortness of breath except when ambulating. She also admitted to anxiety and requested something to help alleviate this. She was given Ativan which initially did not help very much so this was not continued. Overnight, she was started on vancomycin and Levaquin. She continued to have intermittent tachycardia and started become much more tachypneic. She was started on BiPAP and a repeat chest x-ray was done showing worsening of pneumonia now involving the left lower lobe. Given the worsening chest x-ray, patient was switched from Rocephin and a zithromycin to vancomycin and Levaquin. Day 4 Patient had no significant changes, continued to be on BiPAP and was tachypneic with respiratory rates in the 30s. Despite this, she stated she did not feel like she was working hard to breathe, denies shortness of breath, but because of concerns of tachypnea we began to have conversations about elective intubation. Day 5 Patient continued on BiPAP overnight and continued tachypnea with respiratory rates in the 30s and 40s but per nursing staff had a better night sleep. Leukocytosis continue to worsen with WBC increasing from about 14 for the last 3 days now to 18.6. Repeat chest x-ray was done which shows interval worsening of pneumonia in both lungs. Cefepime was added to the antibiotic regimen. Patient's respiratory rate continued to be a concern. This was discussed with critical care surgeon on-call, and the patient, and joint decision was made to intubate the patient. Intubation was successful and with a positive pressure of 10, patient was saturating in the low 90s. Initially, bronchoscopy was entertained for therapeutic benefit however she was felt to be too unstable for this. The post intubation x-ray showed adequate placement of the ET tube however it showed interval worsening of both lungs compared with same day x-ray in the morning. This was strongly suggestive of ARDS and a joint decision was made to seek higher level of care for the patient given her worsening clinical status despite aggressive antibiotic and medical therapy. Consultation was had with MICU physician Dr. Gege Schuler at [facility] who was kind enough to accept the patient for transfer to her facility for further higher level of care. - ALLERGIES Allergies/Adverse Reactions: Allergies Allergy/AdvReac Type Severity Reaction Status Date / Time amoxicillin AdvReac Intermediate Nausea Verified 03/09/21 11:34 clavulanic acid AdvReac Hallucinati Verified 03/09/21 20:17 [From Augmentin] ons - MEDICATIONS Home Medications: Ambulatory Orders Medication Instructions Recorded Confirmed Sertraline HCl [Zoloft] 150 mg PO DAILY 07/18/20 03/09/21 - PHYSICAL EXAM AT DISCHARGE General Appearance: positive: Other (Chemically sedated) Eyes Bilateral: positive: Normal inspection Neck: positive: Nml inspection Respiratory: positive: Breath sounds nml. negative: Wheezes, Rales Cardiovascular: positive: No gallop, Tachycardia. negative: No murmur Peripheral Pulses: positive: 2+ Abdomen: positive: Non-tender, No organomegaly, Nml bowel sounds, No distention Skin: positive: Color nml, No rash, Warm Extremities: positive: Nml appearance Neurologic/Psychiatric: positive: Other (Sedated) - LABS Result Diagrams: 03/13/21 04:19 03/13/21 04:19 - DIAGNOSTIC IMAGING Diagnostic Imaging Results: Prelim report reviewed, Final report reviewed, Read independently - SEPSIS Current Stage of Sepsis: Sepsis Possible source of Sepsis: Pulmonary Sepsis Criteria: Recorded Temperature greater than 38.3C or Less than 36C, Recorded Heart Rate greater than 90 bpm, WBC count greater than 12,000 or less than 4000, MAP less than 65 mmHg, Metabolic: lactate > 2 mmol/L - TIME SPENT Time Spent in Discharge (Minutes): 120"
--- NOTE | 2021-03-13 16:50 | XRAY Report ---
PROCEDURE: Chest for Line Placement INDICATIONS: Central Line placement verification TECHNIQUE: One view of the chest was acquired. COMPARISON: 03/13/2021 at 1506 hours FINDINGS: Surgical changes and devices: ET tube remains in satisfactory position. Interval placement of a right IJ central line, in satisfactory position. Lungs and pleura: Extensive airspace consolidation and bilateral pleural effusions and bibasilar atel ectasis. Unchanged. Mediastinum: Mediastinal contours appear normal. Heart size is normal. Bones and chest wall: No suspicious bony lesions. Overlying soft tissues appear unremarkable. IMPRESSION: 1. Lines and tubes in satisfactory position. 2. Unchanged pulmonary status. Reviewed by: Arvind Cloud MD on 03/13/2021 3:49 PM RADHA Approved by: Arvind Cloud MD on 03/13/2021 3:49 PM AKOMER Station ID: [id number]
--- NOTE | 2021-03-13 16:52 | ANESTHESIA PROCEDURE NOTE ---
Anesth Central Line Template - Central Line Central Line Preparation: Unable to obtain consent, Time out completed, Ultra sound used, Sterile prep and drape Central line location: Right IJ Central line type: Triple lumen Central line catheter tip site resides: Superior vena cava (SVC) Central line aftercare: Chlorhexidine disc placed, Secured, Placement confirmed, No pneumothorax, Pt tolerated well Other Info/Details: Consulted for central line and arterial line placement on patient critically ill with pneumonia. Unable to obtain consent and procedure deemed emergent due to severe illness. On arrival to ICU patient has O2 sat of 86% on 100% O2 with 10 mmHg PEEP. She had a propofol drip infusing however, she was coughing/bucking on the ventilator. 50mg of rocuronium was given IV to improve ventilations and sats increased to mid 90s. A 20 G arterial line was placed to left radial artery with ease. An 18G peripheral IV was started to left forearm X1 attempt. After the arterial line was placed, the patient's right neck was prepped with chlorohexadine and full sterile drapes, gown, gloves and mask were utilized. The right IJ was imaged using ultrasound. The vein was accessed and wire advanced with ease. A triple lumen central line was inserted over the wire and the wire was removed. All three ports aspirate blood and flush with ease. Line was sutured in place at 16cm and opsite with biopatch applied. Chest xray obtained showed tip in the SVC. Patient tolerated procedure well and is awaiting transfer to tertiary facility.
[2021-03-13 17:42] LABS: B. PARAPERTUSSIS- RESP PCR PAN NOT DETECTED; B. PERTUSSIS- RESP PCR PANEL NOT DETECTED; C. PNEUMONIAE- RESP PCR PANEL NOT DETECTED; CORONAVIRUS 229E-RESP PCR NOT DETECTED; CORONAVIRUS HKU1-RESP PCR NOT DETECTED; CORONAVIRUS NL63-RESP PCR NOT DETECTED; CORONAVIRUS OC43-RESP PCR NOT DETECTED; HUMAN METAPNEUMOVIRUS NOT DETECTED; INFLUENZA A- RESP PCR PANEL NOT DETECTED; INFLUENZA B - RESP PCR PANEL NOT DETECTED; M. PNEUMONIAE- RESP PCR PANEL NOT DETECTED; PARAINFLUENZA VIRUS 1 NOT DETECTED; PARAINFLUENZA VIRUS 2 NOT DETECTED; PARAINFLUENZA VIRUS 3 NOT DETECTED; PARAINFLUENZA VIRUS 4 NOT DETECTED; RHINOVIRUS/ENTEROVIRUS NOT DETECTED; RSV- RESP PCR PANEL NOT DETECTED; SARS-CoV-2 -RESP PCR PANEL NOT DETECTED
[2021-03-13 18:11] VITALS: BP 129/77
== END 2021-03-13 17:45 | disposition short-term general hospital (02) | DRG 871 ==
LOC: ED 07:13 → MS3 11:25 → ICU 16:13
PROVIDERS: ADMIT Family Medicine Sports Medicine; ATTEND Family Medicine Sports Medicine
PROC: 5A1935Z Respiratory Ventilation, Less than 24 Consecutive Hours (ICD-10-PCS; principal; 2021-03-13)
PROC: 0BH17EZ Insertion of Endotracheal Airway into Trachea, Via Natural or Artificial Opening (ICD-10-PCS; 2021-03-13)
PROC: 02HV33Z Insertion of Infusion Device into Superior Vena Cava, Percutaneous Approach (ICD-10-PCS; 2021-03-13)
PROC: 03HY32Z Insertion of Monitoring Device into Upper Artery, Percutaneous Approach (ICD-10-PCS; 2021-03-13)
DX: A41.9 Sepsis, unspecified organism (principal); J18.9 Pneumonia, unspecified organism; J80 Acute respiratory distress syndrome; E87.1 Hypo-osmolality and hyponatremia; E87.2 Acidosis; R65.20 Severe sepsis without septic shock; R74.01 Elevation of levels of liver transaminase levels; R74.8 Abnormal levels of other serum enzymes; F41.1 Generalized anxiety disorder; F32.9 Major depressive disorder, single episode, unspecified; E78.00 Pure hypercholesterolemia, unspecified; Z20.822 Contact with and (suspected) exposure to COVID-19; Z79.899 Other long term (current) drug therapy
CPT/HCPCS: 0202U; 36415; 36600; 71045; 71275; 76705; 80048; 80053; 80074; 80202; 81001; 82040; 82803; 83605; 83735; 83880; 84100; 85025; 85027; 85379; 86140; 87040; 87150; 87449; 94002; 94660; 96360; 99283; 99285; A9270; J0330; J3370; J8499; Q9967; 87086; 94770

== ENCOUNTER 2021-03-25 08:00 | Outpatient (CLI) | payer BC ==
[2021-03-25 12:42] LABS: BASOPHILS # (AUTO) 0.1 10^3/uL (0.0-0.1); BASOPHILS % (AUTO) 2.2 %; EOSINOPHILS # (AUTO) 0.1 10^3/uL (0.0-0.7); EOSINOPHILS % (AUTO) 1.5 %; HCT - HEMATOCRIT 39.6 % (37.0-47.0); HGB - HEMOGLOBIN 12.4 g/dL (12.0-16.0); LYMPHOCYTES % (AUTO) 37.6 %; MEAN CORPUSCULAR HEMOGLOBIN 29.7 pg (27.0-31.0); MEAN CORPUSCULAR HGB CONC 31.3 g/dL (32.0-36.0); MEAN CORPUSCULAR VOLUME 94.7 fL (81.0-99.0); MEAN PLATELET VOLUME 9.9 fL (7.9-10.8); MONOCYTES # (AUTO) 0.7 10^3/uL (0.0-1.0); MONOCYTES % (AUTO) 13.1 %; NEUTROPHILS # (AUTO) 2.4 10^3/uL (1.5-6.6); NEUTROPHILS % (AUTO) 44.9 %; PLT - PLATELET COUNT 735 10^3/uL (130-450); RED BLOOD COUNT 4.18 10^6/uL (4.20-5.40); RED CELL DISTRIBUTION WIDTH 13.1 % (12.0-15.0); WHITE BLOOD COUNT 5.4 x10^3/uL (4.8-10.8)
[2021-03-25 13:00] LABS: ALBUMIN 3.7 g/dL (3.2-5.5); BILIRUBIN,TOTAL 0.6 mg/dL (0.2-1.0); CALCIUM 9.4 mg/dL (8.5-10.3); CREATININE 0.7 mg/dL (0.4-1.0); POTASSIUM 4.4 mmol/L (3.5-5.0); TOTAL PROTEIN 7.4 g/dL (6.7-8.2)
== END 2021-03-25 23:59 | disposition home or self-care (01) ==
LOC: LAB.WCP 08:00
PROVIDERS: ATTEND Physician Assistant Medical
DX: J18.9 Pneumonia, unspecified organism (principal)
CPT/HCPCS: 36415; 80053; 85025

== ENCOUNTER 2021-06-22 08:00 | Outpatient (CLI) | payer BC ==
[2021-06-22 11:46] LABS: BASOPHILS % (AUTO) 0.8 %; EOSINOPHILS # (AUTO) 0.1 10^3/uL (0.0-0.7); HCT - HEMATOCRIT 40.7 % (37.0-47.0); HGB - HEMOGLOBIN 13.4 g/dL (12.0-16.0); LYMPHOCYTES # (AUTO) 1.7 10^3/uL (1.5-3.5); LYMPHOCYTES % (AUTO) 33.2 %; MEAN CORPUSCULAR HEMOGLOBIN 29.8 pg (27.0-31.0); MEAN CORPUSCULAR HGB CONC 32.9 g/dL (32.0-36.0); MEAN CORPUSCULAR VOLUME 90.6 fL (81.0-99.0); MEAN PLATELET VOLUME 10.4 fL (7.9-10.8); MONOCYTES # (AUTO) 0.5 10^3/uL (0.0-1.0); MONOCYTES % (AUTO) 10.1 %; NEUTROPHILS # (AUTO) 2.9 10^3/uL (1.5-6.6); NEUTROPHILS % (AUTO) 54.7 %; PLT - PLATELET COUNT 329 10^3/uL (130-450); RED BLOOD COUNT 4.49 10^6/uL (4.20-5.40); WHITE BLOOD COUNT 5.2 x10^3/uL (4.8-10.8)
[2021-06-22 12:25] LABS: THYROID STIMULATING HORMONE 1.09 uIU/mL (0.34-5.60)
[2021-06-22 12:40] LABS: ALBUMIN 4.6 g/dL (3.2-5.5); ALBUMIN/GLOBULIN RATIO 1.6 (1.0-2.2); ALKALINE PHOSPHATASE 90 IU/L (42-121); ALT ALANINE AMINOTRANSFERASE 45 IU/L (10-60); AST ASPARTATE AMINOTRANSFERASE 36 IU/L (10-42); BILIRUBIN,TOTAL 0.6 mg/dL (0.2-1.0); BUN - BLOOD UREA NITROGEN 17 mg/dL (6-20); CALCIUM 9.4 mg/dL (8.5-10.3); CARBON DIOXIDE - CO2 27 mmol/L (21-32); CHLORIDE 104 mmol/L (101-111); CHOL/HDL RATIO 2.9 (<4.4); CHOLESTEROL 251 mg/dL; CREATININE 0.8 mg/dL (0.4-1.0); GFR - MDRD 75 (>89); GLUCOSE 90 mg/dL (70-100); HDL CHOLESTEROL 86 mg/dL; LDL CHOLESTEROL,CALCULATED 149 mg/dL; LDL/HDL RATIO 1.7 (<4.4); SODIUM 138 mmol/L (135-145); TOTAL PROTEIN 7.4 g/dL (6.7-8.2); TRIGLYCERIDES 79 mg/dL; VLDL CHOLESTEROL 16 mg/dL
== END 2021-06-22 23:59 | disposition home or self-care (01) ==
LOC: LAB.WCP 08:00
PROVIDERS: ATTEND Physician Assistant Medical
DX: Z00.00 Encounter for general adult medical examination without abnormal findings (principal); E78.5 Hyperlipidemia, unspecified
CPT/HCPCS: 36415; 80053; 80061; 83721; 84443; 85025

== ENCOUNTER 2022-03-06 09:58 | Outpatient (CLI) | payer BC ==
[2022-03-06 10:46] VITALS: BP 130/98
--- NOTE | 2022-03-06 10:46 | SLEEP CARE CONSULTATION ---
Information from patient questionnaire entered by Familia Nino MA. I have reviewed and concur with the information entered by Familia Nino MA. This document represents the service I personally performed and the decisions made by me, Naima Soto MD, [facility]. History of Present Illness Service Date and Time: 03/06/2022 0958 Reason for Visit: New patient (ONSET 09/17/2008,) Chief Complaint: reports: Insomnia, Unrefreshed sleep, Snoring, Observed pauses in breathing, Fatigue, Frequent awakenings at night, Other Date of Onset: 10 PLUS YEARS Usual bedtime: 7 - 10 PM Time it takes to fall asleep: VARIES Snores at night: Yes Observed to quit breathing while asleep: Yes Sleeps alone due to snoring: No Number of times waking at night: 2-3 X Reasons for waking at night: reports: Snoring, Bathroom, Other Recalls having dreams: Yes (SOMETIMES) Usually gets out of bed at: 0530 Feels refreshed in the morning: No Morning headache: Yes Sleepy or fatigued during the day: Yes Ever fallen asleep while driving: Yes Takes day naps: No Prior sleep studies: No Additional HPI information: I have the pleasure of seeing Ms. Beasley today regarding the possibility of her having obstructive sleep apnea. As you know, she is a 52-year-old lady who complains of frequent awakenings, loud snore, observed apneas, and unrefreshed sleep for the past 10 years. The patient tells me that she normally goes to bed around 9 - 10 pm, and it takes her approximately 20 minutes to fall asleep. She has been told that she snores loudly and irregularly at night. She has also been observed to stop breathing in her sleep. She can recall waking up on the average of 2 - 3 times during the night. Most of the time she wakes up because of having to use the bathroom. She has awakened occasionally because of her own snoring, choking, and having to gasp for air. There is not a lot of tossing and turning in her sleep. No somniloquy (sleep talking) or somnambulism (sleep walking). She can recall having dreams. In the morning she usually gets up out of the bed around 5:30 a.m. not feeling refreshed nor rested. She occasionally has a morning headache. During the day she complains of feeling sleepy and fatigued. Her score on Becker Sleepiness Scale is 12 out of 24. She has fallen asleep while driving and has gone out of the edna. She usually does not take naps during the day. Upon falling asleep during the day, she denies having vivid dreams. She has never had sleep paralysis, experienced cataplexy or symptoms of restless leg syndrome. She reports having impaired concentration during the day. 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 Patient is and lives in [place]. Have you smoked in the past 12 months: No Alcohol use: Yes Alcohol amount and frequency: 1 - 2 WEEKLY Caffeine use: Yes Caffeine amount and frequency: 1 X DAILY Family History Family history of sleep disordered breathing: Yes Family Hx Sleep Apnea: Mother: Snoring, Sleep apnea - Untreated Allergies and Home Medications Known drug allergies: Yes (AUGIMENTIN) Drug allergies reviewed: Yes Home medication list reviewed: Yes (sertraline) Allergy and home medication list: Allergies amoxicillin Adverse Reaction (Intermediate, Verified 03/09/21 11:34) Nausea clavulanic acid [From Augmentin] Adverse Reaction (Verified 03/09/21 20:17) Hallucinations Review of Systems Cardiovascular: denies: high blood pressure, palpitations, chest pain, irregular heart rate or pulse, leg or foot swelling, have to sleep sitting up, other Respiratory: reports: shortness of breath, wheeze, sputum production Gastrointestinal: denies: heartburn, difficulty swallowing, nausea, vomitting, diarrhea, abdominal pain, other Urinary: reports: frequency Neurological: reports: headaches Psychiatric: reports: anxiety, depression Ear/Nose/Throat: reports: sinus problems, hoarseness, tonsillectomy, wisdom teeth removed Endocrine: reports: sluggishness, too hot or cold, excessive thirst Musculoskeletal: denies: joint pain, neck pain, back pain, joint swelling, muscle pain or cramping, mobility problems, other Immunologic: reports: sneezing, allergies to food or environment Physical Exam Vital signs obtained and entered by: Jess NINO CMA AAID Blood Pressure: 130/98 (RESP 20, PULSE 72, RIGHT) Heart Rate: 74 O2 Saturation: 97 (N95) Height: 5 ft 7 in Weight: 156 lb Body Mass Index: 24.4 BMI Classification: Healthy weight Neck circumference: 13 (INCHES) Mood/affect: normal HEENT: No craniofacial malformation Nostrils: patent to airflow Turbinates: normal Septum: midline Mouth and throat: narrow oropharynx Soft palate: long Hard palate: normal Uvula: normal Uvula visualization: 25% Mallampati Class III Tongue: normal in size Tonsils: absent bilaterally Chin and jaw: normal size and position Neck: normal w/o lymphadenopathy or thyromegaly Heart: regular rate and rhythm Lungs: clear bilaterally Extremities: no edema or clubbing Neurologic: intact, no focal deficits Impression and Plan IMPRESSION: 1. Obstructive Sleep Apnea-Hypopnea Syndrome, as evident by history of loud and irregular snoring, observed cessation of breath while asleep, frequent awakenings during the night, unrefreshed sleep, cognitive impairment, and daytime hypersomnolence. Narrow oropharynx is a common predisposing factor for obstructive sleep apnea-hypopnea syndrome. I recommend proceeding to polysomnography to confirm the diagnosis and to assess severity. If she has significant sleep disordered breathing, a manual CPAP titration study will also be performed to find the optimal treatment pressure. I informed the patient of what the sleep studies involve and after some discussion, she agreed to proceed. However, because her insurance is [employer], we will have to go with the home sleep apnea test (HSAT). Plan: 1. Schedule a home sleep apnea test (HSAT). 2. Avoid long distance driving or when feeling sleepy. 3. Avoid alcohol, sedative and muscle relaxant around bedtime. 4. Return for follow up after the test. Follow up with Sleep Care in: 1-2 months Visit Type: In Office Time Spent with Patient (minutes): 15 Provider Statement: I spent 100% of the Face to Face Visit with the patient with greater than 50% spent counseling the patient and coordination of care.
== END 2022-03-06 09:59 | disposition home or self-care (01) ==
LOC: SC 09:58
PROVIDERS: ATTEND Internal Medicine Pulmonary Disease
DX: G47.10 Hypersomnia, unspecified (principal); R53.83 Other fatigue; R06.83 Snoring; G47.8 Other sleep disorders; R06.81 Apnea, not elsewhere classified
CPT/HCPCS: 99202; 99212

== ENCOUNTER 2022-03-15 15:00 | Outpatient (CLI) | payer BC | END 2022-03-15 15:01 | disposition home or self-care (01) | LOC: SC 15:00 | PROVIDERS: ATTEND Internal Medicine Pulmonary Disease | DX: R09.02 Hypoxemia (principal) | CPT/HCPCS: 95806 ==

== ENCOUNTER 2022-04-06 08:57 | Outpatient (CLI) | payer BC ==
[2022-04-06 09:23] VITALS: BP 139/93
--- NOTE | 2022-04-06 09:23 | SLEEP CARE CONSULTATION ---
Information from patient questionnaire entered by Familia Nino MA. I have reviewed and concur with the information entered by Familia Nino MA. This document represents the service I personally performed and the decisions made by , Chery Talbot ARNP. History of Present Illness Service Date and Time: 04/06/2022 0857 Initial Princeton Sleepiness Scale score: 12 (03/06/2022) Current Princeton Sleepiness Scale score: 8 (04/06/2022) Additional HPI information: VIJAYA MARAVILLA returns for follow up and results of the recently performed home sleep study. The patient was informed of the following findings: No significant sleep dis ordered breathing with an average AHI of 2.9 and mohsen oxygen saturation of 88%. Her supine AHI was elevated at 7.7. I explained the pathophysiology behind obstructive sleep apnea. Patient does not have sleep apnea and was advised how weight gain could increase the risk of developing sleep apnea in the future. Patient does not have significant sleep disordered breathing but has elevated AHI in supine position so advised positional therapy. Methods to achieve positional management therapy were discussed; such as, positioning with pillows, wearing a T-shirt with tennis balls sewn into the back, Rematee shirt, Zzomba belt and Slumberbump belt. Patient has moderate snoring. Snoring can be reduced by weight loss. Weight loss is best achieved with diet consult. Patient instructed to contact PCP for referral. Snoring can also be treated with an oral appliance from a dentist. Advised to check insurance coverage. In addition, an ENT evaluation can be do to see if other treatment is indicated. Patient counseled not drink alcohol less than 4 hours before bedtime as it can increase snoring and apnea. Patient was cautioned about risks of drowsy driving until sleepiness symptoms resolve. Sleep Study - Results Type of Sleep Study: Home sleep study (F/U HST, 03/15/2022 [facility], [place]) Prior sleep studies: No Polysomnography/Home Sleep Study results: Physician Impression: The quality of the study is good. The length of the study is adequate (> 240 min utes). Please also see the tabulated and graphic data. 1. No significant sleep disordered breathing, with an AHI of 2.9/hr and mohsen SaO2 of 88%. During the study, the patient had 17 apneas (17 obstructive, 0 central, 0 mixed) and 5 hypopneas. The longest episode lasted 90.5 seconds. The few respiratory events occurred almost exclusively during supine sleep (supine AHI was 7.7 and non-supine, 1.38). 2. Hypoxemia (ICD-10 R09.02), minimal, with the lowest oxygen saturation of 88 % and 0.1 minutes with SaO2 under 90%. Baseline oxygen saturation was normal (Average oxygen saturation was 95%). Allergies and Home Medications Home medication list reviewed: Yes (Effexor) Allergy and home medication list: Allergies amoxicillin Adverse Reaction (Intermediate, Verified 03/09/21 11:34) Nausea clavulanic acid [From Augmentin] Adverse Reaction (Verified 03/09/21 20:17) Hallucinations Review of Systems Review of systems same as previous: Yes (no changes) Physical Exam Vital signs obtained and entered by: DONALD OSWALD Blood Pressure: 139/93 (RESP 22, PUSE 81, RIGHT) Heart Rate: 81 O2 Saturation: 97 (N95) Height: 5 ft 7 in Weight: 155 lb (CLOTHES) Weight change since last visit: LOSE- DIET DUE TO HIGH CHOLESTEROL Body Mass Index: 24.3 BMI Classification: Healthy weight Impression and Plan Snoring but no significant sleep disordered breathing. Since patients apnea is primarily in supine position, patient advised to avoid sleeping supine and she agreed with plan. Patient advised that often weight loss will reduce snoring as well as apnea risk. An oral appliance can also be used for snoring. This would require a dental consultation. Patient cautioned not to use other online appliances as can cause bite issues. A list of accredited dentists in [facility] and one local dentist who makes oral appliances is available in office. Patient is advised to check if insurance will cover. An ENT consult can also be helpful to determine if any other treatment is an option. * Maintain a healthy weight * Avoid alcohol consumption near bedtime * The patient is cautioned about driving until sleepiness is completely resolved. * Return as needed for follow up. Counseling Topics: Sleeping position, Weight loss health impact, Weight control Visit Type: In Office Time Spent with Patient (minutes): 20 Provider Statement: I spent 100% of the Face to Face Visit with the patient with greater than 50% spent counseling the patient and coordination of care.
== END 2022-04-06 08:58 | disposition home or self-care (01) ==
LOC: SC 08:57
PROVIDERS: ATTEND Nurse Practitioner Family
DX: R06.83 Snoring (principal)
CPT/HCPCS: 99212; 99213

== ENCOUNTER 2022-08-11 09:49 | Outpatient (CLI) | payer MEDICAID ==
--- NOTE | 2022-08-14 09:12 | Mammography Report ---
BILATERAL DIGITAL SCREENING MAMMOGRAM 3D/2D: 08/11/2022 CLINICAL: Routine screening. Comparison is made to exams dated: 07/11/2019 mammogram, 03/07/2017 mammogram, 07/21/2015 mammogram, mammogram, and 12/31/2012 mammogram - [facility]. Both breasts are heterogeneously dense, which may obscure small masses (category c / 51-75% glandular tissue). No significant masses, calcifications, or other findings are seen in either breast. There has been no significant interval change. IMPRESSION: NEGATIVE There is no mammographic evidence of malignancy. A 1 year screening mammogram is recommended. Based on the Tyrer Cuzick model (a risk assessment model) the patients lifetime risk is 9.7% and her 10 year risk is 2.8%. According to the ACR, ACS, and NCCN guidelines, an annual breast MRI exam candie g with mammogram is recommended if the patients lifetime risk is 20% or greater. This exam was interpreted at Station ID: [id number]. NOTE: For mammograms, a report in lay terms will be sent to the patient. Approximately 15% of breast malignancies will not be visualized mammographically. In the management of a palpable breast mass, a negative mammogram must not discourage biopsy of a clinically suspicious lesion. Electronically Signed By: Ch[place] fraga/gabriela:08/11/2022 12:13:56 ACR BI-RADS Category 1: Negative 3341F PARENCHYMAL PATTERN: (D) - The breast(s) demonstrate(s) heterogeneously dense fibroglandular stepan stewart. BI-RADS CATEGORY: (1) - 1 RECOMMENDATION: (ANNUAL) - Recommend routine annual screening mammography. [id number] 1 year screening LATERALITY: (B)
== END 2022-08-11 09:50 | disposition home or self-care (01) ==
LOC: DI 09:49
DX: Z12.31 Encounter for screening mammogram for malignant neoplasm of breast (principal)

== ENCOUNTER 2023-11-05 08:47 | Outpatient (CLI) | payer BC ==
[2023-11-05 09:09] LABS: BASOPHILS # (AUTO) 0.1 10^3/uL (0.0-0.1); BASOPHILS % (AUTO) 0.9 %; EOSINOPHILS # (AUTO) 0.1 10^3/uL (0.0-0.7); EOSINOPHILS % (AUTO) 1.7 %; HCT - HEMATOCRIT 40.9 % (37.0-47.0); HGB - HEMOGLOBIN 13.5 g/dL (12.0-16.0); LYMPHOCYTES # (AUTO) 2.2 10^3/uL (1.5-3.5); LYMPHOCYTES % (AUTO) 33.4 %; MEAN CORPUSCULAR HEMOGLOBIN 29.2 pg (27.0-31.0); MEAN CORPUSCULAR VOLUME 88.5 fL (81.0-99.0); MONOCYTES # (AUTO) 0.7 10^3/uL (0.0-1.0); MONOCYTES % (AUTO) 10.1 %; NEUTROPHILS # (AUTO) 3.5 10^3/uL (1.5-6.6); NEUTROPHILS % (AUTO) 53.6 %; PLT - PLATELET COUNT 332 10^3/uL (130-450); RED BLOOD COUNT 4.62 10^6/uL (4.20-5.40); RED CELL DISTRIBUTION WIDTH 12.6 % (12.0-15.0); WHITE BLOOD COUNT 6.5 x10^3/uL (4.8-10.8)
[2023-11-05 09:30] LABS: ALBUMIN 4.5 g/dL (3.2-5.5); ALBUMIN/GLOBULIN RATIO 1.5 (1.0-2.2); ALKALINE PHOSPHATASE 84 IU/L (42-121); ALT ALANINE AMINOTRANSFERASE 22 IU/L (10-60); AST ASPARTATE AMINOTRANSFERASE 19 IU/L (10-42); BILIRUBIN,TOTAL 0.5 mg/dL (0.2-1.0); BUN - BLOOD UREA NITROGEN 20 mg/dL (6-20); CALCIUM 9.7 mg/dL (8.5-10.3); CARBON DIOXIDE - CO2 28 mmol/L (21-32); CHLORIDE 105 mmol/L (101-111); CHOL/HDL RATIO 3.5 (<4.4); CHOLESTEROL 247 mg/dL; CREATININE 0.8 mg/dL (0.6-1.3); GFR - MDRD 74 (>89); GLUCOSE 100 mg/dL (74-104); HDL CHOLESTEROL 71 mg/dL; LDL CHOLESTEROL,CALCULATED 145 mg/dL; POTASSIUM 4.2 mmol/L (3.5-4.5); SODIUM 138 mmol/L (135-145); TOTAL PROTEIN 7.5 g/dL (6.4-8.9); TRIGLYCERIDES 155 mg/dL (48-352); VLDL CHOLESTEROL 31 mg/dL
[2023-11-05 09:44] LABS: THYROID STIMULATING HORMONE 1.17 uIU/mL (0.34-5.60)
== END 2023-11-05 08:48 | disposition home or self-care (01) ==
LOC: LAB 08:47
PROVIDERS: ATTEND Physician Assistant Medical
DX: Z00.00 Encounter for general adult medical examination without abnormal findings (principal); E78.5 Hyperlipidemia, unspecified
CPT/HCPCS: 36415; 80053; 80061; 83721; 84443; 85025

== ENCOUNTER 2024-01-25 09:18 | Outpatient (CLI) | payer BC ==
--- NOTE | 2024-01-28 09:30 | Mammography Report ---
BILATERAL DIGITAL SCREENING MAMMOGRAM 3D/2D: 01/25/2024 CLINICAL: Routine screening. Comparison is made to exams dated: 08/11/2022 mammogram, 07/11/2019 mammogram, 03/07/2017 mammogram, and 07/21/2015 mammogram - [facility]. Both breasts are heterogeneously dense, which may obscure small masses (category c / 51-75% glandular tissue). No significant masses, calcifications, or other findings are seen in either breast. There has been no significant interval change. IMPRESSION: NEGATIVE There is no mammographic evidence of malignancy. A 1 year screening mammogram is recommended. Based on the Tyrer Cuzick model (a risk assessment model) the patient's lifetime risk is 9.9% and her 10 year risk is 3.2%. According to the ACR, ACS, and NCCN guidelines, an annual breast MRI exam candie g with mammogram is recommended if the patient's lifetime risk is 20% or greater. This exam was interpreted at Station ID: [id number]. NOTE: For mammograms, a report in lay terms will be sent to the patient. Approximately 15% of breast malignancies will not be visualized mammographically. In the management of a palpable breast mass, a negative mammogram must not discourage biopsy of a clinically suspicious lesion. Electronically Signed By: Mane brice/gabriela:01/25/2024 11:42:20 ACR BI-RADS Category 1: Negative 3341F PARENCHYMAL PATTERN: (D) - The breast(s) demonstrate(s) heterogeneously dense fibroglandular stepan stewart. BI-RADS CATEGORY: (1) - 1 RECOMMENDATION: (ANNUAL) - Recommend routine annual screening mammography. [id number] 1 year screening LATERALITY: (B)
== END 2024-01-25 09:19 | disposition home or self-care (01) ==
LOC: DI 09:18
DX: Z12.31 Encounter for screening mammogram for malignant neoplasm of breast (principal); R92.333 Mammographic heterogeneous density, bilateral breasts